=== PATIENT | male | born 1980 | race American Indian/Alaskan Native ===

== ENCOUNTER 2018-09-01 08:54 | Inpatient (IN) | payer BC ==
[2018-09-01] MEDS ORDERED: NACL 0.9% 1000 ML 1,000 ML ONE (09:19)
[2018-09-01 09:27] LABS: Basophils # (Auto) 0.1 K/mm3 (0.0-0.1); Basophils % (Auto) 1.3 % (0.0-1.8); Eosinophils % (Auto) 0.4 % (0.0-4.3); Hematocrit 46.3 % (35.5-45.6); Hemoglobin 15.3 gm/dl (11.8-15.2); Lymphocytes # (Auto) 1.5 K/mm3 (1.2-5.4); Lymphocytes % (Auto) 13.7 % (13.4-35.0); Mean Corpuscular HGB Conc 33 % (32-34); Mean Corpuscular Volume 83 fl (84-94); Monocytes # (Auto) 1.2 K/mm3 (0.0-0.8); Monocytes % (Auto) 11.3 % (0.0-7.3); Platelet Count 256 K/mm3 (140-440); Red Blood Count 5.57 M/mm3 (3.65-5.03); Red Cell Distribution Width 14.7 % (13.2-15.2)
--- NOTE | 2018-09-01 09:41 | Emergency Department Report ---
ED Shortness of Breath HPI - General Chief Complaint: Dyspnea/Respdistress Stated Complaint: SOB Time Seen by Provider: 09/01/18 09:31 Source: patient Mode of arrival: Ambulatory Limitations: No Limitations - History of Present Illness Initial Comments: Patient is a 37-year-old male that presents emergency room with complaints of elevated sugar and shortness of breath and dyspnea on exertion. Patient states is worse with exertion and better with rest. Patient states that his doctor diagnosed him yesterday with diabetes due to an elevated sugar between 500 and 600. Patient states he's been urinating a lot and also very thirsty. Patient denies chest pain. Patient denies abdominal pain. Patient denies fever or chills. Patient denies diaphoresis. MD Complaint: shortness of breath -: Sudden Severity: severe Consistency: constant Improves With: rest Worsens With: movement Known History Of: diabetes Context: elevated blood glucose Associated Symptoms: denies other symptoms (except for sob) - Related Data Home Medications Medication Instructions Recorded Confirmed Last Taken No Known Home Medications [No 09/01/18 09/01/18 Unknown Reported Home Medications] Allergies Allergy/AdvReac Type Severity Reaction Status Date / Time No Known Allergies Allergy Unverified 09/01/18 09:16 ED Review of Systems ROS: Stated complaint: SOB Other details as noted in HPI Constitutional: denies: chills, fever Eyes: denies: eye pain, eye discharge, vision change ENT: denies: ear pain, throat pain Respiratory: shortness of breath, SOB with exertion, SOB at rest. denies: cough, wheezing Cardiovascular: denies: chest pain, palpitations Endocrine: no symptoms reported Gastrointestinal: denies: abdominal pain, nausea, diarrhea Genitourinary: denies: urgency, dysuria Musculoskeletal: denies: back pain, joint swelling, arthralgia Skin: denies: rash, lesions Neurological: denies: headache, weakness, paresthesias Psychiatric: denies: anxiety, depression Hematological/Lymphatic: denies: easy bleeding, easy bruising ED Past Medical Hx - Past Medical History Previous Medical History?: Yes Hx Diabetes: Yes - Surgical History Past Surgical History?: No - Family History Family history: no significant - Social History Smoking Status: Never Smoker Substance Use Type: None - Medications Home Medications: Home Medications Medication Instructions Recorded Confirmed Last Taken Type No Known Home Medications [No 09/01/18 09/01/18 Unknown History Reported Home Medications] ED Physical Exam - General Limitations: No Limitations General appearance: alert, in no apparent distress, obese - Head Head exam: Present: atraumatic, normocephalic - Eye Eye exam: Present: normal appearance - ENT ENT exam: Present: mucous membranes moist - Neck Neck exam: Present: normal inspection - Respiratory Respiratory exam: Present: normal lung sounds bilaterally. Absent: respiratory distress - Cardiovascular Cardiovascular Exam: Present: regular rate, normal rhythm. Absent: systolic murmur, diastolic murmur, rubs, gallop - GI/Abdominal GI/Abdominal exam: Present: soft, normal bowel sounds - Rectal Rectal exam: Present: deferred - Extremities Exam Extremities exam: Present: normal inspection - Back Exam Back exam: Present: normal inspection - Neurological Exam Neurological exam: Present: alert, oriented X3 - Psychiatric Psychiatric exam: Present: normal affect, normal mood - Skin Skin exam: Present: warm, dry, intact, normal color. Absent: rash ED Course Vital Signs 09/01/18 09/01/18 09/01/18 09:30 09:45 10:00 Pulse Rate 95 H 91 H 90 Respiratory 24 19 20 Rate Blood Pressure 155/88 171/103 163/91 Blood Pressure [Right] O2 Sat by Pulse 99 98 100 Oximetry 09/01/18 09/01/18 09/01/18 10:15 10:30 10:46 Pulse Rate 91 H 89 93 H Respiratory 16 19 21 Rate Blood Pressure 184/108 162/104 184/108 Blood Pressure [Right] O2 Sat by Pulse 99 98 100 Oximetry 09/01/18 09/01/18 09/01/18 11:16 11:30 11:34 Pulse Rate 88 88 Respiratory 21 21 Rate Blood Pressure 162/104 164/83 Blood Pressure 164/83 [Right] O2 Sat by Pulse 100 99 97 Oximetry - Reevaluation(s) Reevaluation #1: Discussed All results with patient. She will be admitted to the hospital service for further outpatient treatment. Patient is in DKA. Patient voiced understanding of results. Patient agrees with plan of care and admission. 09/01/18 10:35 - Consultations Consultation #1: Hospitalist consulted for admission. Hospitalist to assume care of patient and admit patient. BRidge orders placed 09/01/18 10:37 ED Medical Decision Making - Lab Data Result diagrams: 09/01/18 09:13 09/01/18 14:34 - EKG Data -: EKG Interpreted by Me EKG shows normal: sinus rhythm, axis, intervals, QRS complexes, ST-T waves Rate: normal - Medical Decision Making Patient is a 37-year-old male presents to emergency room with complaints of hyperglycemia shortness of breath. Patient found to be in DKA. Patient's labs are positive for metabolic acidosis elevated anion gap, low bicarbonate and hyponatremia. Hyponatremia most likely strep and acuity S [place]. Patient's blood count essentially unremarkable. Patient's urine is pending. The patient's d-dimer is elevated but pretest probability is low. Patient is not hypoxic. Patient is not visibly short of breath. - Differential Diagnosis shortness of breath. Hyperglycemia. DKA. hhs. new dm Critical Care Time: Yes Critical care attestation.: If time is entered above; I have spent that time in minutes in the direct care of this critically ill patient, excluding procedure time. Critical Care Time: 45 minutes ED Disposition Clinical Impression: SOB (shortness of breath), Newly diagnosed diabetes, Metabolic acidosis DKA (diabetic ketoacidoses) Qualifiers: Diabetes mellitus type: type 2 Diabetes mellitus complication detail: without coma Qualified Code(s): E11.10 - Type 2 diabetes mellitus with ketoacidosis without coma Disposition: 09 OP ADMIT IP TO THIS HOSP Is pt being admited?: Yes Does the pt Need Aspirin: No Condition: Critical Time of Disposition: 10:35
[2018-09-01 09:56] LABS: BUN/Creatinine Ratio TNR; Blood Urea Nitrogen TNR mg/dL (9-20); Calcium TNR mg/dL (8.4-10.2); Hemolysis Index TNR
[2018-09-01 10:12] LABS: BUN/Creatinine Ratio 17; Blood Urea Nitrogen 17 mg/dL (9-20); Calcium 8.8 mg/dL (8.4-10.2); Hemolysis Index 41
[2018-09-01] MEDS ORDERED: D50W (25GM) Syringe IV PRN (10:33)
[2018-09-01] MEDS ORDERED: NACL 0.9% 1000 ML 1,000 ML IV ONE (10:33)
[2018-09-01 11:19] LABS: Creatine Kinase MB 4.6 ng/mL (0.0-4.0)
[2018-09-01 11:20] LABS: Alanine Aminotransferase 21 units/L (7-56); Albumin 4.3 g/dL (3.9-5)
[2018-09-01 11:22] LABS: BUN/Creatinine Ratio 18; Blood Urea Nitrogen 16 mg/dL (9-20); Calcium 8.8 mg/dL (8.4-10.2); Hemolysis Index 96
[2018-09-01 11:23] LABS: Bilirubin,Direct < 0.2 mg/dL (0-0.2)
[2018-09-01] MEDS: HumuLIN R 100 UNITS in NACL 0.9% 99 ML IV SCH (11:30)
[2018-09-01 11:36] LABS: Bilirubin,Urine NEG (Negative); Blood,Urine MOD (Negative); Color,Urine Straw (Yellow); Mucus,Urine FEW /HPF; Urobilinogen,Urine < 2.0 mg/dL (<2.0)
--- NOTE | 2018-09-01 12:29 | History and Physical Report ---
History of Present Illness Date of examination: 09/01/18 Date of admission: 09/01/18 10:53 History of present illness: Very pleasant morbidly obese 37-year-old -[place] male patient with no significant past medical history presented to the emergency room with worsening shortness of breath and elevated blood sugars and generalized weakness, patient reports that his shortness of breath is aggravated by activity and relieved by rest, Patient went to a physician yesterday and diagnosed him with elevated blood sugars with new onset diabetes sugars were between 500- 600, Patient also complains of polyuria and polydipsia Denies nausea or vomiting or abdominal pain denies fevers or cough, Denies chest pain or palpitations, Initial workup is consistent with diabetic ketoacidosis, With elevated blood sugars, high anion gap, Severe metabolic acidosis,pseudohyponatremia and multiply electrolyte abnormalities, patient is severely dehydrated Past History Past Medical History: No medical history Past Surgical History: No surgical history Social history: lives with family. denies: smoking, alcohol abuse, prescription drug abuse Family history: diabetes, hypertension Medications and Allergies Allergies Allergy/AdvReac Type Severity Reaction Status Date / Time No Known Allergies Allergy Unverified 09/01/18 09:16 Home Medications Medication Instructions Recorded Confirmed Last Taken Type No Known Home Medications [No 09/01/18 09/01/18 Unknown History Reported Home Medications] Active Meds: Active Medications Dextrose (D50w (25gm) Syringe) 0 ml IV PRN PRN PRN Reason: Hypoglycemia Insulin Human Regular 100 (units/ Sodium Chloride) 100 mls @ 1 mls/hr IV TITR DARNELL; Protocol Last Titration: 09/01/18 12:21 Dose: 4 units/hr, 4 mls/hr Documented by: Review of Systems Constitutional: fatigue, weakness, no weight loss, no weight gain, no fever, no chills Ears, nose, mouth and throat: no nasal congestion, no nasal discharge Cardiovascular: no chest pain, no orthopnea, no palpitations Respiratory: no cough, no shortness of breath Gastrointestinal: no abdominal pain, no nausea, no vomiting Genitourinary Male: urinary frequency Musculoskeletal: no neck stiffness, no myalgias, no arthritis Integumentary: no rash, no lesions Neurological: no paralysis, no syncope Psychiatric: no anxiety, no depression Endocrine: polydipsia, polyuria, no cold intolerance, no heat intolerance Hematologic/Lymphatic: no easy bruising, no easy bleeding Allergic/Immunologic: no urticaria, no allergic rhinitis Exam - Constitutional Vitals: Temp Pulse Resp BP Pulse Ox 88 21 164/83 97 09/01/18 11:34 09/01/18 11:34 09/01/18 11:34 09/01/18 11:34 General appearance: Present: mild distress, well-nourished, obese (morbidly obese) - EENT Eyes: Present: PERRL, EOM intact - Neck Neck: Present: supple, normal ROM - Respiratory Respiratory effort: normal Respiratory: bilateral: diminished, negative: rales, rhonchi, wheezing - Cardiovascular Rhythm: regular Heart Sounds: Present: S1 & S2 - Extremities Extremities: no ischemia, No edema - Abdominal General gastrointestinal: Present: soft, non-tender, non-distended, normal bowel sounds - Integumentary Integumentary: Present: clear, warm - Musculoskeletal Musculoskeletal: strength equal bilaterally, generalized weakness - Psychiatric Psychiatric: appropriate mood/affect, cooperative - Neurologic Neurologic: CNII-XII intact, moves all extremities Results - Labs CBC & Chem 7: 09/01/18 09:13 09/01/18 14:34 Labs: Abnormal lab results 09/01/18 09/01/18 09/01/18 Range/Units 09:13 09:13 09:40 RBC 5.57 H (3.65-5.03) M/mm3 Hgb 15.3 H (11.8-15.2) gm/dl Hct 46.3 H (35.5-45.6) % MCV 83 L (84-94) fl [place] % (Auto) 11.3 H (0.0-7.3) % [place] # 1.2 H (0.0-0.8) K/mm3 Seg Neutrophils % 73.3 H (40.0-70.0) % Seg Neutrophils # 7.8 H (1.8-7.7) K/mm3 D-Dimer 295.65 H (0-234) ng/mlDDU VBG pH 7.214 L (7.320-7.420) Sodium (137-145) mmol/L Potassium (3.6-5.0) mmol/L Chloride (98-107) mmol/L Carbon Dioxide (22-30) mmol/L Glucose (75-100) mg/dL POC Glucose (70-105) Phosphorus (2.5-4.5) mg/dL Total Creatine Kinase (55-170) units/L CK-MB (CK-2) (0.0-4.0) ng/mL 09/01/18 09/01/18 09/01/18 Range/Units 09:40 09:40 10:44 RBC (3.65-5.03) M/mm3 Hgb (11.8-15.2) gm/dl Hct (35.5-45.6) % MCV (84-94) fl [place] % (Auto) (0.0-7.3) % [place] # (0.0-0.8) K/mm3 Seg Neutrophils % (40.0-70.0) % Seg Neutrophils # (1.8-7.7) K/mm3 D-Dimer (0-234) ng/mlDDU VBG pH (7.320-7.420) Sodium 124 L (137-145) mmol/L Potassium (3.6-5.0) mmol/L Chloride 86.4 L (98-107) mmol/L Carbon Dioxide 7 L* (22-30) mmol/L Glucose 367 H (75-100) mg/dL POC Glucose (70-105) Phosphorus 2.20 L (2.5-4.5) mg/dL Total Creatine Kinase 456 H (55-170) units/L CK-MB (CK-2) 4.6 H (0.0-4.0) ng/mL 09/01/18 09/01/18 09/01/18 Range/Units 10:44 11:28 12:21 RBC (3.65-5.03) M/mm3 Hgb (11.8-15.2) gm/dl Hct (35.5-45.6) % MCV (84-94) fl [place] % (Auto) (0.0-7.3) % [place] # (0.0-0.8) K/mm3 Seg Neutrophils % (40.0-70.0) % Seg Neutrophils # (1.8-7.7) K/mm3 D-Dimer (0-234) ng/mlDDU VBG pH (7.320-7.420) Sodium 124 L (137-145) mmol/L Potassium 5.3 H (3.6-5.0) mmol/L Chloride 87.8 L (98-107) mmol/L Carbon Dioxide 8 L* (22-30) mmol/L Glucose 341 H (75-100) mg/dL POC Glucose 303 H 243 H (70-105) Phosphorus (2.5-4.5) mg/dL Total Creatine Kinase (55-170) units/L CK-MB (CK-2) (0.0-4.0) ng/mL Assessment and Plan -- DKA; initiate DKA pathway; admit to ICU rigorous IV hydration, insulin drip, closely monitor electrolytes Nothing by mouth status, check hemoglobin A1c and lipid panel Diabetic education, nutrition education, supportive care Critical care consult --Severe metabolic acidosis; rigorous IV hydration Replacement therapy with bicarbonate as needed --Pseudo hyponatremia: Secondary to high glucose, as the glucose levels improved Sodium levels increase, closely monitor --Hyperkalemia; IV hydration, Kayexalate if needed Closely monitor electrolytes --Hypophosphatemia; replace per protocol --Hypertension: Uncontrolled, hydralazine as needed Closely monitor blood pressures, when necessary medications --Morbid obesity : BMI 54.4 patient needs diet modification, exercise as tolerated And weight reduction --DVT prophylaxis; Lovenox Closely monitor the patient and adjust management as needed Plan of care is reviewed with the patient and his nurse Critical care consult Critical care time 45 minutes The high probability of a clinically significant, sudden or life threatening d eterioration of the [endocrine, metabolic] system(s) required my full and direct attention, intervention and personal management. The aggregate critical care time was [45] minutes. This time is in addition to time spent performing reported procedures but includes the following: [x] Data Review and interpretation [x] Patient assessment and monitoring of vital signs [x] Documentation [x] Medication orders and management
[2018-09-01] MEDS ORDERED: APRESOLINE IV PRN (12:48)
[2018-09-01] MEDS: D5/0.45NS 1,000 ML IV SCH ×2 (13:07→21:10)
[2018-09-01] MEDS ORDERED: NACL 0.9% 1000 ML 1,000 ML IV SCH (14:00)
[2018-09-01] MEDS: PEPCID IV SCH ×2 (14:25→21:11)
[2018-09-01] MEDS: APRESOLINE PO SCH ×2 (14:25→21:12)
[2018-09-01 14:49] LABS: BUN/Creatinine Ratio 16; Blood Urea Nitrogen 16 mg/dL (9-20); Hemolysis Index 71
[2018-09-01 14:52] LABS: Chol/HDL Ratio 8.14 %
[2018-09-01 15:22] LABS: BUN/Creatinine Ratio 17; Blood Urea Nitrogen 15 mg/dL (9-20); Calcium 8.7 mg/dL (8.4-10.2); Hemolysis Index 284
[2018-09-01] MEDS ORDERED: NACL 0.9% 1000 ML 1,000 ML with SODIUM BICARBONATE 50 MEQ IV SCH (17:00)
[2018-09-01 17:16] LABS: BUN/Creatinine Ratio 18; Blood Urea Nitrogen 14 mg/dL (9-20); Calcium 8.6 mg/dL (8.4-10.2); Hemolysis Index 41
--- NOTE | 2018-09-01 17:45 | Consultation ---
History of Present Illness - Reason for Consult Consult date: 09/01/18 DKA Requesting physician: KRISH VERDUGO - History of Present Illness 37 y/o obese male admitted with nausea, vomiting, abdominal pain and polydipsia found to be in DKA. New diagnosis of diabetes. Past History Past Medical History: No medical history Past Surgical History: No surgical history Social history: lives with family. denies: smoking, alcohol abuse, prescription drug abuse Family history: diabetes, hypertension Medications and Allergies Allergies Allergy/AdvReac Type Severity Reaction Status Date / Time No Known Allergies Allergy Unverified 09/01/18 09:16 Home Medications Medication Instructions Recorded Confirmed Last Taken Type No Known Home Medications [No 09/01/18 09/01/18 Unknown History Reported Home Medications] Active Meds: Active Medications Dextrose (D50w (25gm) Syringe) 0 ml IV PRN PRN PRN Reason: Hypoglycemia Enoxaparin Sodium (Lovenox) 40 mg SUB-Q QDAY@2200 DARNELL Famotidine (Pepcid) 20 mg IV BID DARNELL Last Admin: 09/01/18 14:25 Dose: 20 mg Documented by: Hydralazine HCl (Apresoline) 25 mg PO Q8HR DARNELL Last Admin: 09/01/18 14:25 Dose: 25 mg Documented by: Hydralazine HCl (Apresoline) 10 mg IV Q4HR PRN PRN Reason: Hypertension Insulin Human Regular 100 (units/ Sodium Chloride) 100 mls @ 1 mls/hr IV TITR S CH; Protocol Last Titration: 09/01/18 17:15 Dose: 5 units/hr, 5 mls/hr Documented by: Dextrose/Sodium Chloride (D5/0.45ns) 1,000 mls @ 125 mls/hr IV DIRECT DARNELL Last Admin: 09/01/18 13:07 Dose: 125 mls/hr Documented by: Sodium Bicarbonate 50 meq/ (Sodium Chloride) 1,050 mls @ 125 mls/hr IV DIRECT DARNELL Review of Systems All systems: negative Exam - Constitutional Vitals: Temp Pulse Resp BP Pulse Ox 90 16 155/82 99 09/01/18 17:00 09/01/18 17:00 09/01/18 17:00 09/01/18 17:00 General appearance: Present: no acute distress, well-nourished, obese - EENT Eyes: Present: PERRL, EOM intact ENT: hearing intact, clear oral mucosa, dentition normal - Neck Neck: Present: supple, normal ROM - Respiratory Respiratory effort: normal Respiratory: bilateral: CTA - Cardiovascular Rhythm: regular Heart Sounds: Present: S1 & S2 - Extremities Extremities: no ischemia, pulses intact, pulses symmetrical - Abdominal General gastrointestinal: Present: soft, normal bowel sounds Male genitourinary: Present: deferred - Rectal Rectal Exam: deferred - Integumentary Integumentary: Present: clear, warm, dry - Musculoskeletal Musculoskeletal: strength equal bilaterally - Psychiatric Psychiatric: appropriate mood/affect Results - Labs CBC & Chem 7: 09/02/18 04:22 09/02/18 10:22 Labs: Abnormal lab results 09/01/18 09/01/18 09/01/18 Range/Units 09:13 09:13 09:40 RBC 5.57 H (3.65-5.03) M/mm3 Hgb 15.3 H (11.8-15.2) gm/dl Hct 46.3 H (35.5-45.6) % MCV 83 L (84-94) fl [place] % (Auto) 11.3 H (0.0-7.3) % [place] # 1.2 H (0.0-0.8) K/mm3 Seg Neutrophils % 73.3 H (40.0-70.0) % Seg Neutrophils # 7.8 H (1.8-7.7) K/mm3 D-Dimer 295.65 H (0-234) ng/mlDDU VBG pH 7.214 L (7.320-7.420) Sodium (137-145) mmol/L Potassium (3.6-5.0) mmol/L Chloride (98-107) mmol/L Carbon Dioxide (22-30) mmol/L Glucose (75-100) mg/dL POC Glucose (70-105) Hemoglobin A1c (4-6) % Phosphorus (2.5-4.5) mg/dL Magnesium (1.7-2.3) mg/dL Total Creatine Kinase (55-170) units/L CK-MB (CK-2) (0.0-4.0) ng/mL Triglycerides (2-149) mg/dL Cholesterol (50-199) mg/dL LDL Cholesterol Direct (50-130) mg/dL HDL Cholesterol (40-59) mg/dL 09/01/18 09/01/18 09/01/18 Range/Units 09:40 09:40 10:44 RBC (3.65-5.03) M/mm3 Hgb (11.8-15.2) gm/dl Hct (35.5-45.6) % MCV (84-94) fl [place] % (Auto) (0.0-7.3) % [place] # (0.0-0.8) K/mm3 Seg Neutrophils % (40.0-70.0) % Seg Neutrophils # (1.8-7.7) K/mm3 D-Dimer (0-234) ng/mlDDU VBG pH (7.320-7.420) Sodium 124 L (137-145) mmol/L Potassium (3.6-5.0) mmol/L Chloride 86.4 L (98-107) mmol/L Carbon Dioxide 7 L* (22-30) mmol/L Glucose 367 H (75-100) mg/dL POC Glucose (70-105) Hemoglobin A1c (4-6) % Phosphorus 2.20 L (2.5-4.5) mg/dL Magnesium (1.7-2.3) mg/dL Total Creatine Kinase 456 H (55-170) units/L CK-MB (CK-2) 4.6 H (0.0-4.0) ng/mL Triglycerides (2-149) mg/dL Cholesterol (50-199) mg/dL LDL Cholesterol Direct (50-130) mg/dL HDL Cholesterol (40-59) mg/dL 09/01/18 09/01/18 09/01/18 Range/Units 10:44 11:28 12:21 RBC (3.65-5.03) M/mm3 Hgb (11.8-15.2) gm/dl Hct (35.5-45.6) % MCV (84-94) fl [place] % (Auto) (0.0-7.3) % [place] # (0.0-0.8) K/mm3 Seg Neutrophils % (40.0-70.0) % Seg Neutrophils # (1.8-7.7) K/mm3 D-Dimer (0-234) ng/mlDDU VBG pH (7.320-7.420) Sodium 124 L (137-145) mmol/L Potassium 5.3 H (3.6-5.0) mmol/L Chloride 87.8 L (98-107) mmol/L Carbon Dioxide 8 L* (22-30) mmol/L Glucose 341 H (75-100) mg/dL POC Glucose 303 H 243 H (70-105) Hemoglobin A1c (4-6) % Phosphorus (2.5-4.5) mg/dL Magnesium (1.7-2.3) mg/dL Total Creatine Kinase (55-170) units/L CK-MB (CK-2) (0.0-4.0) ng/mL Triglycerides (2-149) mg/dL Cholesterol (50-199) mg/dL LDL Cholesterol Direct (50-130) mg/dL HDL Cholesterol (40-59) mg/dL 09/01/18 09/01/18 09/01/18 Range/Units 13:08 13:08 13:08 RBC (3.65-5.03) M/mm3 Hgb (11.8-15.2) gm/dl Hct (35.5-45.6) % MCV (84-94) fl [place] % (Auto) (0.0-7.3) % [place] # (0.0-0.8) K/mm3 Seg Neutrophils % (40.0-70.0) % Seg Neutrophils # (1.8-7.7) K/mm3 D-Dimer (0-234) ng/mlDDU VBG pH (7.320-7.420) Sodium 126 L (137-145) mmol/L Potassium (3.6-5.0) mmol/L Chloride 89.2 L (98-107) mmol/L Carbon Dioxide 8 L* (22-30) mmol/L Glucose 263 H (75-100) mg/dL POC Glucose (70-105) Hemoglobin A1c 12.9 H (4-6) % Phosphorus 1.50 L D (2.5-4.5) mg/dL Magnesium 2.40 H (1.7-2.3) mg/dL Total Creatine Kinase (55-170) units/L CK-MB (CK-2) (0.0-4.0) ng/mL Triglycerides (2-149) mg/dL Cholesterol (50-199) mg/dL LDL Cholesterol Direct (50-130) mg/dL HDL Cholesterol (40-59) mg/dL 09/01/18 09/01/18 09/01/18 Range/Units 13:08 13:16 14:20 RBC (3.65-5.03) M/mm3 Hgb (11.8-15.2) gm/dl Hct (35.5-45.6) % MCV (84-94) fl [place] % (Auto) (0.0-7.3) % [place] # (0.0-0.8) K/mm3 Seg Neutrophils % (40.0-70.0) % Seg Neutrophils # (1.8-7.7) K/mm3 D-Dimer (0-234) ng/mlDDU VBG pH (7.320-7.420) Sodium (137-145) mmol/L Potassium (3.6-5.0) mmol/L Chloride (98-107) mmol/L Carbon Dioxide (22-30) mmol/L Glucose (75-100) mg/dL POC Glucose 246 H 239 H (70-105) Hemoglobin A1c (4-6) % Phosphorus (2.5-4.5) mg/dL Magnesium (1.7-2.3) mg/dL Total Creatine Kinase (55-170) units/L CK-MB (CK-2) (0.0-4.0) ng/mL Triglycerides 151 H (2-149) mg/dL Cholesterol 228 H (50-199) mg/dL LDL Cholesterol Direct 182 H (50-130) mg/dL HDL Cholesterol 28 L (40-59) mg/dL 09/01/18 09/01/18 09/01/18 Range/Units 14:34 15:10 16:10 RBC (3.65-5.03) M/mm3 Hgb (11.8-15.2) gm/dl Hct (35.5-45.6) % MCV (84-94) fl [place] % (Auto) (0.0-7.3) % [place] # (0.0-0.8) K/mm3 Seg Neutrophils % (40.0-70.0) % Seg Neutrophils # (1.8-7.7) K/mm3 D-Dimer (0-234) ng/mlDDU VBG pH (7.320-7.420) Sodium 125 L (137-145) mmol/L Potassium 5.3 H D (3.6-5.0) mmol/L Chloride 94.9 L (98-107) mmol/L Carbon Dioxide 8 L* (22-30) mmol/L Glucose 228 H (75-100) mg/dL POC Glucose 205 H 221 H (70-105) Hemoglobin A1c (4-6) % Phosphorus (2.5-4.5) mg/dL Magnesium (1.7-2.3) mg/dL Total Creatine Kinase (55-170) units/L CK-MB (CK-2) (0.0-4.0) ng/mL Triglycerides (2-149) mg/dL Cholesterol (50-199) mg/dL LDL Cholesterol Direct (50-130) mg/dL HDL Cholesterol (40-59) mg/dL 09/01/18 09/01/18 09/01/18 Range/Units 16:40 16:40 17:18 RBC (3.65-5.03) M/mm3 Hgb (11.8-15.2) gm/dl Hct (35.5-45.6) % MCV (84-94) fl [place] % (Auto) (0.0-7.3) % [place] # (0.0-0.8) K/mm3 Seg Neutrophils % (40.0-70.0) % Seg Neutrophils # (1.8-7.7) K/mm3 D-Dimer (0-234) ng/mlDDU VBG pH (7.320-7.420) Sodium 125 L (137-145) mmol/L Potassium (3.6-5.0) mmol/L Chloride 93.9 L (98-107) mmol/L Carbon Dioxide 11 L (22-30) mmol/L Glucose 243 H (75-100) mg/dL POC Glucose 214 H (70-105) Hemoglobin A1c (4-6) % Phosphorus 1.40 L (2.5-4.5) mg/dL Magnesium (1.7-2.3) mg/dL Total Creatine Kinase (55-170) units/L CK-MB (CK-2) (0.0-4.0) ng/mL Triglycerides (2-149) mg/dL Cholesterol (50-199) mg/dL LDL Cholesterol Direct (50-130) mg/dL HDL Cholesterol (40-59) mg/dL Assessment and Plan 37 y/o male with DKA 1. Insulin drip 2. NPO 3. Once sugars are less than 250 start D5W 4. Q6hour BMP's 5. Nausea and pain control [id number]
[2018-09-01] MEDS ORDERED: SODIUM PHOSPHATE 45 MMOL in NACL 0.9% 500 ML 500 ML IV ONE (19:30)
[2018-09-01 21:06] LABS: BUN/Creatinine Ratio 19; Blood Urea Nitrogen 13 mg/dL (9-20); Calcium 8.7 mg/dL (8.4-10.2); Hemolysis Index 131
[2018-09-01] MEDS: LOVENOX SUB-Q SCH (21:12)
[2018-09-02] MEDS: HumuLIN R 100 UNITS in NACL 0.9% 99 ML IV SCH (03:16)
[2018-09-02 05:07] LABS: Basophils # (Auto) 0.1 K/mm3 (0.0-0.1); Eosinophils # (Auto) 0.1 K/mm3 (0.0-0.4); Hematocrit 39.6 % (35.5-45.6); Hemoglobin 13.3 gm/dl (11.8-15.2); Lymphocytes # (Auto) 1.5 K/mm3 (1.2-5.4); Lymphocytes % (Auto) 21.5 % (13.4-35.0); Mean Corpuscular HGB Conc 34 % (32-34); Mean Corpuscular Volume 81 fl (84-94); Monocytes % (Auto) 13.8 % (0.0-7.3); Platelet Count 198 K/mm3 (140-440); Red Cell Distribution Width 14.3 % (13.2-15.2)
[2018-09-02 05:24] LABS: BUN/Creatinine Ratio 16; Blood Urea Nitrogen 11 mg/dL (9-20); Calcium 8.5 mg/dL (8.4-10.2); Hemolysis Index 14
[2018-09-02] MEDS: APRESOLINE PO SCH ×3 (06:43→21:30)
[2018-09-02] MEDS ORDERED: D5W/0.45% NACL/KCL 20 MEQ 20 MEQ/1,000 ML BAG IV SCH (07:00)
[2018-09-02] MEDS ORDERED: KPHOS 30 MMOL in NACL 0.9% 500 ML 500 ML IV ONE (07:30)
--- NOTE | 2018-09-02 08:07 | Progress Note ---
Assessment and Plan Assessment and plan: -- DKA; on insulin drip, blood sugars reasonable level Anion gap closed, remains acidotic, A1c 12.9 rigorous IV hydration, DC insulin drip, Accu-Cheks ACHS 7030 insulin start to increase as needed diabetic education, nutrition consult --Severe metabolic acidosis; rigorous IV hydration Replacement therapy with bicarbonate as needed --Pseudo hyponatremia: Secondary to high glucose, as the glucose levels improved Sodium levels increase, closely monitor --Hypokalemia; replenishment per protocol --Hypophosphatemia; replenish per protocol --Hypertension well controlled, continue hydralazine as needed --Morbid obesity : BMI 54.4 diet modification, exercise as tolerated And weight reduction --DVT prophylaxis; Lovenox Transfer out of ICU to medical floor Plan of care is reviewed with the patient and his nurse Critical care time 35 minutes The high probability of a clinically significant, sudden or life threatening deterioration of the [endocrine, metabolic] system(s) required my full and direct attention, intervention and personal management. The aggregate critical care time was [35] minutes. This time is in addition to time spent performing reported procedures but includes the following: [x] Data Review and interpretation [x] Patient assessment and monitoring of vital signs [x] Documentation [x] Medication orders and management History Interval history: Patient seen and examined medical records reviewed Admitted with DKA, blood sugar is reasonable Anion gap closed, still remains acidotic Denies nausea or vomiting or abdominal pain Alert awake oriented, vital signs noted Hospitalist Physical - Constitutional Vitals: Temp Pulse Resp BP Pulse Ox 98.6 F 81 18 129/67 99 09/02/18 04:00 09/02/18 07:00 09/02/18 07:00 09/02/18 07:00 09/02/18 07:00 General appearance: Present: no acute distress, well-nourished, obese (morbidly obese) - EENT Eyes: Present: PERRL, EOM intact - Neck Neck: Present: supple, normal ROM - Respiratory Respiratory effort: normal Respiratory: bilateral: diminished, negative: rales, rhonchi, wheezing - Cardiovascular Rhythm: regular Heart Sounds: Present: S1 & S2 - Extremities Extremities: no ischemia, No edema - Abdominal General gastrointestinal: soft, non-tender, non-distended, normal bowel sounds - Integumentary Integumentary: Present: clear, warm - Psychiatric Psychiatric: appropriate mood/affect, cooperative - Neurologic Neurologic: CNII-XII intact, moves all extremities Results - Labs CBC & Chem 7: 09/02/18 04:22 09/02/18 14:25 Labs: Laboratory Last Values WBC 7.1 K/mm3 (4.5-11.0) 09/02/18 04:22 RBC 4.90 M/mm3 (3.65-5.03) 09/02/18 04:22 Hgb 13.3 gm/dl (11.8-15.2) 09/02/18 04:22 Hct 39.6 % (35.5-45.6) D 09/02/18 04:22 MCV 81 fl (84-94) L 09/02/18 04:22 MCH 27 pg (28-32) L 09/02/18 04:22 MCHC 34 % (32-34) 09/02/18 04:22 RDW 14.3 % (13.2-15.2) 09/02/18 04:22 Plt Count 198 K/mm3 (140-440) 09/02/18 04:22 Lymph % (Auto) 21.5 % (13.4-35.0) 09/02/18 04:22 [place] % (Auto) 13.8 % (0.0-7.3) H 09/02/18 04:22 Eos % (Auto) 1.0 % (0.0-4.3) 09/02/18 04:22 Baso % (Auto) 1.0 % (0.0-1.8) 09/02/18 04:22 Lymph # 1.5 K/mm3 (1.2-5.4) 09/02/18 04:22 [place] # 1.0 K/mm3 (0.0-0.8) H 09/02/18 04:22 Eos # 0.1 K/mm3 (0.0-0.4) 09/02/18 04:22 Baso # 0.1 K/mm3 (0.0-0.1) 09/02/18 04:22 Seg Neutrophils % 62.7 % (40.0-70.0) 09/02/18 04:22 Seg Neutrophils # 4.5 K/mm3 (1.8-7.7) 09/02/18 04:22 D-Dimer 295.65 ng/mlDDU (0-234) H 09/01/18 09:40 VBG pH 7.214 (7.320-7.420) L 09/01/18 09:13 Sodium 129 mmol/L (137-145) L 09/02/18 04:22 Potassium 3.2 mmol/L (3.6-5.0) L 09/02/18 04:22 Chloride 96.4 mmol/L (98-107) L 09/02/18 04:22 Carbon Dioxide 17 mmol/L (22-30) L 09/02/18 04:22 Anion Gap 19 mmol/L 09/02/18 04:22 BUN 11 mg/dL (9-20) 09/02/18 04:22 Creatinine 0.7 mg/dL (0.8-1.5) L 09/02/18 04:22 Estimated GFR > 60 ml/min 09/02/18 04:22 BUN/Creatinine Ratio 16 % 09/02/18 04:22 Glucose 170 mg/dL (75-100) H 09/02/18 04:22 POC Glucose 159 (70-105) H 09/02/18 04:56 Hemoglobin A1c 12.9 % (4-6) H 09/01/18 13:08 Calcium 8.5 mg/dL (8.4-10.2) 09/02/18 04:22 Phosphorus 2.20 mg/dL (2.5-4.5) L D 09/02/18 04:22 Magnesium 2.10 mg/dL (1.7-2.3) 09/02/18 04:22 Total Bilirubin 0.40 mg/dL (0.1-1.2) 09/01/18 09:40 Direct Bilirubin < 0.2 mg/dL (0-0.2) 09/01/18 09:40 AST 17 units/L (5-40) 09/01/18 09:40 ALT 21 units/L (7-56) 09/01/18 09:40 Alkaline Phosphatase 96 units/L (35-129) 09/01/18 09:40 Total Creatine Kinase 456 units/L (55-170) H 09/01/18 09:40 CK-MB (CK-2) 4.6 ng/mL (0.0-4.0) H 09/01/18 09:40 CK-MB (CK-2) Rel Index 1.0 (0-4) 09/01/18 09:40 Troponin T < 0.010 ng/mL (0.00-0.029) 09/01/18 09:40 NT-Pro-B Natriuret Pep 42.18 pg/mL (0-450) 09/01/18 09:40 Total Protein 8.0 g/dL (6.3-8.2) 09/01/18 09:40 Albumin 4.3 g/dL (3.9-5) 09/01/18 09:40 Albumin/Globulin Ratio 1.2 % 09/01/18 09:40 Triglycerides 151 mg/dL (2-149) H 09/01/18 13:08 Cholesterol 228 mg/dL (50-199) H 09/01/18 13:08 LDL Cholesterol Direct 182 mg/dL (50-130) H 09/01/18 13:08 HDL Cholesterol 28 mg/dL (40-59) L 09/01/18 13:08 Cholesterol/HDL Ratio 8.14 % 09/01/18 13:08 Urine Color Straw (Yellow) 09/01/18 11:25 Urine Turbidity Clear (Clear) 09/01/18 11:25 Urine pH 6.0 (5.0-7.0) 09/01/18 11:25 Ur Specific [place] 1.021 (1.003-1.030) 09/01/18 11:25 Urine Protein 30 mg/dl mg/dL (Negative) 09/01/18 11:25 Urine Glucose (UA) >=500 mg/dL (Negative) 09/01/18 11:25 Urine Ketones 80 mg/dL (Negative) 09/01/18 11:25 Urine Blood Mod (Negative) 09/01/18 11:25 Urine Nitrite Neg (Negative) 09/01/18 11:25 Urine Bilirubin Neg (Negative) 09/01/18 11:25 Urine Urobilinogen < 2.0 mg/dL (<2.0) 09/01/18 11:25 Ur Leukocyte Esterase Neg (Negative) 09/01/18 11:25 Urine WBC (Auto) 1.0 /HPF (0.0-6.0) 09/01/18 11:25 Urine RBC (Auto) 1.0 /HPF (0.0-6.0) 09/01/18 11:25 U Epithel Cells (Auto) < 1.0 /HPF (0-13.0) 09/01/18 11:25 Urine Mucus Few /HPF 09/01/18 11:25
[2018-09-02] MEDS ORDERED: NACL 0.9% 1000 ML 1,000 ML IV SCH (09:00)
[2018-09-02] MEDS ORDERED: K-DUR PO ONE (09:00)
[2018-09-02] MEDS: PEPCID PO SCH ×2 (09:13→21:30)
[2018-09-02] MEDS: HumaLOG SUB-Q SCH ×4 (09:17→21:38)
[2018-09-02] MEDS ORDERED: PROTONIX IV SCH (10:00)
[2018-09-02 10:58] LABS: BUN/Creatinine Ratio 14; Blood Urea Nitrogen 11 mg/dL (9-20); Calcium 8.7 mg/dL (8.4-10.2); Hemolysis Index 16
--- NOTE | 2018-09-02 11:03 | Progress Note ---
Assessment and Plan 37 y/o male with DKA 1. Long acting insulin 2. Consistent Carbohydrate Diet 3. Stop IVF's 4. Transition to floor 5. Will sign off once out of unit. Subjective Date of service: 09/02/18 Interval history: No acute events. Gap closed and now on long acting insulin. Feels better. Tolerated breakfast with no issues. Objective - Constitutional Vitals: Vital Signs - 12hr 09/01/18 09/01/18 09/01/18 23:23 23:26 23:30 Temperature Pulse Rate 88 86 89 Respiratory 15 16 Rate Blood Pressure 144/74 144/74 O2 Sat by Pulse 98 98 Oximetry 09/02/18 09/02/18 09/02/18 00:00 00:30 01:00 Temperature 98.4 F Pulse Rate 86 82 83 Respiratory 18 17 19 Rate Blood Pressure 155/88 155/88 140/73 O2 Sat by Pulse 97 100 99 Oximetry 09/02/18 09/02/18 09/02/18 01:30 02:00 02:30 Temperature Pulse Rate 85 84 91 H Respiratory 15 19 18 Rate Blood Pressure 140/73 131/71 134/80 O2 Sat by Pulse 100 99 99 Oximetry 09/02/18 09/02/18 09/02/18 03:00 03:30 04:00 Temperature 98.6 F Pulse Rate 89 84 82 Respiratory 17 18 18 Rate Blood Pressure 128/80 135/71 129/72 O2 Sat by Pulse 97 100 100 Oximetry 09/02/18 09/02/18 09/02/18 04:22 04:30 05:00 Temperature Pulse Rate 84 80 84 Respiratory 16 17 Rate Blood Pressure 129/72 129/72 O2 Sat by Pulse 99 98 Oximetry 09/02/18 09/02/18 09/02/18 05:30 06:00 06:30 Temperature Pulse Rate 83 83 81 Respiratory 18 17 14 Rate Blood Pressure 129/72 129/72 129/72 O2 Sat by Pulse 99 98 99 Oximetry 09/02/18 09/02/18 09/02/18 06:43 07:00 07:30 Temperature Pulse Rate 85 81 87 Respiratory 18 13 Rate Blood Pressure 129/67 129/67 129/67 O2 Sat by Pulse 99 99 Oximetry 09/02/18 09/02/18 09/02/18 08:00 08:08 08:30 Temperature Pulse Rate 89 85 Respiratory 20 16 Rate Blood Pressure 129/67 125/67 O2 Sat by Pulse 99 100 Oximetry 09/02/18 09/02/18 09/02/18 09:00 09:30 10:00 Temperature Pulse Rate 92 H 87 94 H Respiratory 10 L 22 17 Rate Blood Pressure 121/64 121/64 134/68 O2 Sat by Pulse 98 97 99 Oximetry 09/02/18 09/02/18 10:30 11:00 Temperature 98.5 F Pulse Rate 92 H Respiratory 18 Rate Blood Pressure 143/85 O2 Sat by Pulse 98 Oximetry General appearance: Present: no acute distress, well-nourished, obese - EENT ENT: hearing intact, clear oral mucosa, dentition normal - Neck Neck: supple, normal ROM, other (large in circumference) - Respiratory Respiratory effort: normal Respiratory: bilateral: CTA - Cardiovascular Rhythm: regular Heart Sounds: Present: S1 & S2 Extremities: no ischemia, pulses intact, pulses symmetrical - Gastrointestinal General gastrointestinal: Present: soft, non-tender, normal bowel sounds - Integumentary Integumentary: clear, warm, dry - Musculoskeletal Musculoskeletal: strength equal bilaterally - Neurologic Neurologic: CNII-XII intact - Psychiatric Psychiatric: appropriate mood/affect - Labs CBC & Chem 7: 09/02/18 04:22 09/02/18 10:22 Labs: Abnormal lab results 09/01/18 09/01/18 09/01/18 Range/Units 09:40 10:44 10:44 MCV (84-94) fl MCH (28-32) pg [place] % (Auto) (0.0-7.3) % Bell # (0.0-0.8) K/mm3 Sodium 124 L (137-145) mmol/L Potassium 5.3 H (3.6-5.0) mmol/L Chloride 87.8 L (98-107) mmol/L Carbon Dioxide 8 L* (22-30) mmol/L Creatinine (0.8-1.5) mg/dL Glucose 341 H (75-100) mg/dL POC Glucose (70-105) Hemoglobin A1c (4-6) % Phosphorus 2.20 L (2.5-4.5) mg/dL Magnesium (1.7-2.3) mg/dL Total Creatine Kinase 456 H (55-170) units/L CK-MB (CK-2) 4.6 H (0.0-4.0) ng/mL Triglycerides (2-149) mg/dL Cholesterol (50-199) mg/dL LDL Cholesterol Direct (50-130) mg/dL HDL Cholesterol (40-59) mg/dL 09/01/18 09/01/18 09/01/18 Range/Units 11:28 12:21 13:08 MCV (84-94) fl MCH (28-32) pg Bell % (Auto) (0.0-7.3) % Bell # (0.0-0.8) K/mm3 Sodium 126 L (137-145) mmol/L Potassium (3.6-5.0) mmol/L Chloride 89.2 L (98-107) mmol/L Carbon Dioxide 8 L* (22-30) mmol/L Creatinine (0.8-1.5) mg/dL Glucose 263 H (75-100) mg/dL POC Glucose 303 H 243 H (70-105) Hemoglobin A1c (4-6) % Phosphorus (2.5-4.5) mg/dL Magnesium (1.7-2.3) mg/dL Total Creatine Kinase (55-170) units/L CK-MB (CK-2) (0.0-4.0) ng/mL Triglycerides (2-149) mg/dL Cholesterol (50-199) mg/dL LDL Cholesterol Direct (50-130) mg/dL HDL Cholesterol (40-59) mg/dL 09/01/18 09/01/18 09/01/18 Range/Units 13:08 13:08 13:08 MCV (84-94) fl MCH (28-32) pg [place] % (Auto) (0.0-7.3) % Bell # (0.0-0.8) K/mm3 Sodium (137-145) mmol/L Potassium (3.6-5.0) mmol/L Chloride (98-107) mmol/L Carbon Dioxide (22-30) mmol/L Creatinine (0.8-1.5) mg/dL Glucose (75-100) mg/dL POC Glucose (70-105) Hemoglobin A1c 12.9 H (4-6) % Phosphorus 1.50 L D (2.5-4.5) mg/dL Magnesium 2.40 H (1.7-2.3) mg/dL Total Creatine Kinase (55-170) units/L CK-MB (CK-2) (0.0-4.0) ng/mL Triglycerides 151 H (2-149) mg/dL Cholesterol 228 H (50-199) mg/dL LDL Cholesterol Direct 182 H (50-130) mg/dL HDL Cholesterol 28 L (40-59) mg/dL 09/01/18 09/01/18 09/01/18 Range/Units 13:16 14:20 14:34 MCV (84-94) fl MCH (28-32) pg [place] % (Auto) (0.0-7.3) % Bell # (0.0-0.8) K/mm3 Sodium 125 L (137-145) mmol/L Potassium 5.3 H D (3.6-5.0) mmol/L Chloride 94.9 L (98-107) mmol/L Carbon Dioxide 8 L* (22-30) mmol/L Creatinine (0.8-1.5) mg/dL Glucose 228 H (75-100) mg/dL POC Glucose 246 H 239 H (70-105) Hemoglobin A1c (4-6) % Phosphorus (2.5-4.5) mg/dL Magnesium (1.7-2.3) mg/dL Total Creatine Kinase (55-170) units/L CK-MB (CK-2) (0.0-4.0) ng/mL Triglycerides (2-149) mg/dL Cholesterol (50-199) mg/dL LDL Cholesterol Direct (50-130) mg/dL HDL Cholesterol (40-59) mg/dL 09/01/18 09/01/18 09/01/18 Range/Units 15:10 16:10 16:40 MCV (84-94) fl MCH (28-32) pg [place] % (Auto) (0.0-7.3) % Bell # (0.0-0.8) K/mm3 Sodium 125 L (137-145) mmol/L Potassium (3.6-5.0) mmol/L Chloride 93.9 L (98-107) mmol/L Carbon Dioxide 11 L (22-30) mmol/L Creatinine (0.8-1.5) mg/dL Glucose 243 H (75-100) mg/dL POC Glucose 205 H 221 H (70-105) Hemoglobin A1c (4-6) % Phosphorus (2.5-4.5) mg/dL Magnesium (1.7-2.3) mg/dL Total Creatine Kinase (55-170) units/L CK-MB (CK-2) (0.0-4.0) ng/mL Triglycerides (2-149) mg/dL Cholesterol (50-199) mg/dL LDL Cholesterol Direct (50-130) mg/dL HDL Cholesterol (40-59) mg/dL 09/01/18 09/01/18 09/01/18 Range/Units 16:40 17:18 18:26 MCV (84-94) fl MCH (28-32) pg [place] % (Auto) (0.0-7.3) % Bell # (0.0-0.8) K/mm3 Sodium (137-145) mmol/L Potassium (3.6-5.0) mmol/L Chloride (98-107) mmol/L Carbon Dioxide (22-30) mmol/L Creatinine (0.8-1.5) mg/dL Glucose (75-100) mg/dL POC Glucose 214 H 193 H (70-105) Hemoglobin A1c (4-6) % Phosphorus 1.40 L (2.5-4.5) mg/dL Magnesium (1.7-2.3) mg/dL Total Creatine Kinase (55-170) units/L CK-MB (CK-2) (0.0-4.0) ng/mL Triglycerides (2-149) mg/dL Cholesterol (50-199) mg/dL LDL Cholesterol Direct (50-130) mg/dL HDL Cholesterol (40-59) mg/dL 09/01/18 09/01/18 09/01/18 Range/Units 19:03 20:10 20:18 MCV (84-94) fl MCH (28-32) pg [place] % (Auto) (0.0-7.3) % [place] # (0.0-0.8) K/mm3 Sodium 126 L (137-145) mmol/L Potassium (3.6-5.0) mmol/L Chloride 92.7 L (98-107) mmol/L Carbon Dioxide 12 L (22-30) mmol/L Creatinine 0.7 L (0.8-1.5) mg/dL Glucose 251 H (75-100) mg/dL POC Glucose 203 H 224 H (70-105) Hemoglobin A1c (4-6) % Phosphorus (2.5-4.5) mg/dL Magnesium (1.7-2.3) mg/dL Total Creatine Kinase (55-170) units/L CK-MB (CK-2) (0.0-4.0) ng/mL Triglycerides (2-149) mg/dL Cholesterol (50-199) mg/dL LDL Cholesterol Direct (50-130) mg/dL HDL Cholesterol (40-59) mg/dL 09/01/18 09/01/18 09/01/18 Range/Units 21:18 22:25 23:18 MCV (84-94) fl MCH (28-32) pg [place] % (Auto) (0.0-7.3) % Bell # (0.0-0.8) K/mm3 Sodium (137-145) mmol/L Potassium (3.6-5.0) mmol/L Chloride (98-107) mmol/L Carbon Dioxide (22-30) mmol/L Creatinine (0.8-1.5) mg/dL Glucose (75-100) mg/dL POC Glucose 188 H 196 H 175 H (70-105) Hemoglobin A1c (4-6) % Phosphorus (2.5-4.5) mg/dL Magnesium (1.7-2.3) mg/dL Total Creatine Kinase (55-170) units/L CK-MB (CK-2) (0.0-4.0) ng/mL Triglycerides (2-149) mg/dL Cholesterol (50-199) mg/dL LDL Cholesterol Direct (50-130) mg/dL HDL Cholesterol (40-59) mg/dL 09/02/18 09/02/18 09/02/18 Range/Units 00:10 00:59 02:03 MCV (84-94) fl MCH (28-32) pg [place] % (Auto) (0.0-7.3) % Bell # (0.0-0.8) K/mm3 Sodium (137-145) mmol/L Potassium (3.6-5.0) mmol/L Chloride (98-107) mmol/L Carbon Dioxide (22-30) mmol/L Creatinine (0.8-1.5) mg/dL Glucose (75-100) mg/dL POC Glucose 166 H 162 H 145 H (70-105) Hemoglobin A1c (4-6) % Phosphorus (2.5-4.5) mg/dL Magnesium (1.7-2.3) mg/dL Total Creatine Kinase (55-170) units/L CK-MB (CK-2) (0.0-4.0) ng/mL Triglycerides (2-149) mg/dL Cholesterol (50-199) mg/dL LDL Cholesterol Direct (50-130) mg/dL HDL Cholesterol (40-59) mg/dL 09/02/18 09/02/18 09/02/18 Range/Units 02: 04:10 04:22 MCV (84-94) fl MCH (28-32) pg [place] % (Auto) (0.0-7.3) % Bell # (0.0-0.8) K/mm3 Sodium 129 L (137-145) mmol/L Potassium 3.2 L (3.6-5.0) mmol/L Chloride 96.4 L (98-107) mmol/L Carbon Dioxide 17 L (22-30) mmol/L Creatinine 0.7 L (0.8-1.5) mg/dL Glucose 170 H (75-100) mg/dL POC Glucose 156 H 176 H (70-105) Hemoglobin A1c (4-6) % Phosphorus (2.5-4.5) mg/dL Magnesium (1.7-2.3) mg/dL Total Creatine Kinase (55-170) units/L CK-MB (CK-2) (0.0-4.0) ng/mL Triglycerides (2-149) mg/dL Cholesterol (50-199) mg/dL LDL Cholesterol Direct (50-130) mg/dL HDL Cholesterol (40-59) mg/dL 09/02/18 09/02/18 09/02/18 Range/Units 04:22 04:22 04:56 MCV 81 L (84-94) fl MCH 27 L (28-32) pg [place] % (Auto) 13.8 H (0.0-7.3) % Bell # 1.0 H (0.0-0.8) K/mm3 Sodium (137-145) mmol/L Potassium (3.6-5.0) mmol/L Chloride (98-107) mmol/L Carbon Dioxide (22-30) mmol/L Creatinine (0.8-1.5) mg/dL Glucose (75-100) mg/dL POC Glucose 159 H (70-105) Hemoglobin A1c (4-6) % Phosphorus 2.20 L D (2.5-4.5) mg/dL Magnesium (1.7-2.3) mg/dL Total Creatine Kinase (55-170) units/L CK-MB (CK-2) (0.0-4.0) ng/mL Triglycerides (2-149) mg/dL Cholesterol (50-199) mg/dL LDL Cholesterol Direct (50-130) mg/dL HDL Cholesterol (40-59) mg/dL 09/02/18 09/02/18 09/02/18 Range/Units 06:00 06:49 09:05 MCV (84-94) fl MCH (28-32) pg [place] % (Auto) (0.0-7.3) % Bell # (0.0-0.8) K/mm3 Sodium (137-145) mmol/L Potassium (3.6-5.0) mmol/L Chloride (98-107) mmol/L Carbon Dioxide (22-30) mmol/L Creatinine (0.8-1.5) mg/dL Glucose (75-100) mg/dL POC Glucose 167 H 138 H 178 H (70-105) Hemoglobin A1c (4-6) % Phosphorus (2.5-4.5) mg/dL Magnesium (1.7-2.3) mg/dL Total Creatine Kinase (55-170) units/L CK-MB (CK-2) (0.0-4.0) ng/mL Triglycerides (2-149) mg/dL Cholesterol (50-199) mg/dL LDL Cholesterol Direct (50-130) mg/dL HDL Cholesterol (40-59) mg/dL 09/02/18 Range/Units 10:22 MCV (84-94) fl MCH (28-32) pg [place] % (Auto) (0.0-7.3) % Bell # (0.0-0.8) K/mm3 Sodium 128 L (137-145) mmol/L Potassium 3.2 L (3.6-5.0) mmol/L Chloride 92.9 L (98-107) mmol/L Carbon Dioxide 11 L (22-30) mmol/L Creatinine (0.8-1.5) mg/dL Glucose 254 H (75-100) mg/dL POC Glucose (70-105) Hemoglobin A1c (4-6) % Phosphorus (2.5-4.5) mg/dL Magnesium (1.7-2.3) mg/dL Total Creatine Kinase (55-170) units/L CK-MB (CK-2) (0.0-4.0) ng/mL Triglycerides (2-149) mg/dL Cholesterol (50-199) mg/dL LDL Cholesterol Direct (50-130) mg/dL HDL Cholesterol (40-59) mg/dL Medications & Allergies - Medications Allergies/Adverse Reactions: Allergies No Known Allergies Allergy (Unverified 09/01/18 09:16) Home Medications: Home Medications Medication Instructions Recorded Confirmed Last Taken Type No Known Home Medications [No 09/01/18 09/01/18 Unknown History Reported Home Medications] Active Medications: Generic Name Dose Route Start Last Admin Trade Name Freq PRN Reason Stop Dose Admin Dextrose 0 ml 09/01/18 10:33 D50w (25gm) Syringe IV PRN PRN Hypoglycemia Enoxaparin Sodium 40 mg 09/01/18 22:00 09/01/18 21:12 Lovenox SUB-Q 40 mg QDAY@2200 DARNELL Administration Famotidine 20 mg 09/02/18 10:00 09/02/18 09:13 Pepcid PO 20 mg BID DARNELL Administration Hydralazine HCl 25 mg 09/01/18 14:00 09/02/18 06:43 Apresoline PO 25 mg Q8HR DARNELL Administration Hydralazine HCl 10 mg 09/01/18 12:48 Apresoline IV Q4HR PRN Hypertension Potassium Phosphate 30 mmol/ 510 mls @ 85 mls/hr 09/02/18 07:30 09/02/18 08:00 Sodium Chloride IV 09/02/18 13:29 85 mls/hr ONCE ONE Administration Insulin Human Isoph/Insulin Regular 8 unit 09/02/18 09:00 09/02/18 09:10 Humulin 70/30 SUB-Q 8 unit BIDDIAB DARNELL Administration Insulin Human Lispro 0 unit 09/02/18 09:00 09/02/18 09:17 Humalog SUB-Q 3 unit ACHS DARNELL Administration Protocol Potassium Chloride 20 meq 09/03/18 10:00 K-Dur PO QDAY DARNELL
[2018-09-02 15:10] LABS: BUN/Creatinine Ratio 13; Blood Urea Nitrogen 12 mg/dL (9-20); Calcium 8.6 mg/dL (8.4-10.2); Hemolysis Index 12
[2018-09-02] MEDS ORDERED: NACL 0.9% 500 ML 500 ML IV ONE (17:10)
[2018-09-02] MEDS: SODIUM BICARBONATE 50 MEQ in NACL 0.9% 1000 ML 1,000 ML IV SCH (17:12)
[2018-09-02] MEDS: LOVENOX SUB-Q SCH (21:29)
[2018-09-03 06:25] LABS: Hematocrit 38.4 % (35.5-45.6); Hemoglobin 12.9 gm/dl (11.8-15.2); Mean Corpuscular HGB Conc 34 % (32-34); Mean Corpuscular Volume 82 fl (84-94); Platelet Count 169 K/mm3 (140-440); Red Blood Count 4.69 M/mm3 (3.65-5.03); Red Cell Distribution Width 14.5 % (13.2-15.2)
[2018-09-03] MEDS: APRESOLINE PO SCH ×3 (06:34→22:39)
[2018-09-03 06:52] LABS: Alanine Aminotransferase 17 units/L (7-56); Albumin 3.3 g/dL (3.9-5); BUN/Creatinine Ratio 13; Blood Urea Nitrogen 9 mg/dL (9-20); Calcium 8.7 mg/dL (8.4-10.2); Hemolysis Index 4
[2018-09-03] MEDS: SODIUM BICARBONATE 50 MEQ in NACL 0.9% 1000 ML 1,000 ML IV SCH (06:58)
[2018-09-03 07:54] LABS: Basophils % (Manual) 0 % (0.0-1.8); Total Cells Counted 100
[2018-09-03 07:55] LABS: Anisocytosis 1+; Platelet Estimate Consistent w Auto; Poikilocytosis 1+; Target Cells Few
--- NOTE | 2018-09-03 08:10 | Progress Note ---
Assessment and Plan Assessment and plan: -- DKA;resolved, Anion gap closed, acidosis significantly improved, Continued IV fluids --Type 1 DM:A1c 12.9, moderate control Accu-Cheks ACHS, 7030 insulin adjust as needed diabetic education, nutrition consult --Severe metabolic acidosis; significantly improved Replacement therapy with bicarbonate as needed --Pseudo hyponatremia: Secondary to high glucose, as the glucose levels improved Sodium levels increase, closely monitor --Hypokalemia; replenishment per protocol --Hypophosphatemia; replenish per protocol --Hypertension well controlled, continue hydralazine as needed --Moderate malnutrition; nutrition supplements and supportive care --Morbid obesity : BMI 54.4 diet modification, exercise as tolerated And weight reduction --DVT prophylaxis; Lovenox Diabetic and nutrition education Possible discharge in 1-2 days if stable History Interval history: Patient seen and examined medical records reviewed Patient's sugars are reasonable control AAO x3, vital signs noted Blood sugars moderate control Hospitalist Physical - Constitutional Vitals: Temp Pulse Resp BP Pulse Ox 98.2 F 78 18 130/80 100 09/03/18 06:09 09/03/18 06:34 09/03/18 06:09 09/03/18 06:34 09/03/18 06:09 General appearance: Present: no acute distress, well-nourished, obese (morbidly obese) - EENT Eyes: Present: PERRL, EOM intact - Neck Neck: Present: supple, normal ROM - Respiratory Respiratory effort: normal Respiratory: bilateral: diminished, negative: rales, rhonchi, wheezing - Cardiovascular Rhythm: regular Heart Sounds: Present: S1 & S2 - Extremities Extremities: no ischemia, No edema - Abdominal General gastrointestinal: soft, non-tender, non-distended, normal bowel sounds - Integumentary Integumentary: Present: clear, warm - Psychiatric Psychiatric: appropriate mood/affect, cooperative - Neurologic Neurologic: CNII-XII intact, moves all extremities Results - Labs CBC & Chem 7: 09/03/18 05:43 09/03/18 05:43 Labs: Laboratory Last Values WBC 5.1 K/mm3 (4.5-11.0) 09/03/18 05:43 RBC 4.69 M/mm3 (3.65-5.03) 09/03/18 05:43 Hgb 12.9 gm/dl (11.8-15.2) 09/03/18 05:43 Hct 38.4 % (35.5-45.6) 09/03/18 05:43 MCV 82 fl (84-94) L 09/03/18 05:43 MCH 28 pg (28-32) 09/03/18 05:43 MCHC 34 % (32-34) 09/03/18 05:43 RDW 14.5 % (13.2-15.2) 09/03/18 05:43 Plt Count 169 K/mm3 (140-440) 09/03/18 05:43 Lymph % (Auto) 21.5 % (13.4-35.0) 09/02/18 04:22 O'Brien % (Auto) [employer] Engineering Technician 09/03/18 05:43 Eos % (Auto) 1.0 % (0.0-4.3) 09/02/18 04:22 Baso % (Auto) 1.0 % (0.0-1.8) 09/02/18 04:22 Lymph # 1.5 K/mm3 (1.2-5.4) 09/02/18 04:22 O'Brien # 1.0 K/mm3 (0.0-0.8) H 09/02/18 04:22 Eos # 0.1 K/mm3 (0.0-0.4) 09/02/18 04:22 Baso # 0.1 K/mm3 (0.0-0.1) 09/02/18 04:22 Add Manual Diff Complete 09/03/18 05:43 Total Counted 100 09/03/18 05:43 Seg Neutrophils % 62.7 % (40.0-70.0) 09/02/18 04:22 Seg Neuts % (Manual) 64.0 % (40.0-70.0) 09/03/18 05:43 Band Neutrophils % 0 % 09/03/18 05:43 Lymphocytes % (Manual) 21.0 % (13.4-35.0) 09/03/18 05:43 Reactive Lymphs % (Man) 0 % 09/03/18 05:43 Monocytes % (Manual) 14.0 % (0.0-7.3) H 09/03/18 05:43 Eosinophils % (Manual) 1.0 % (0.0-4.3) 09/03/18 05:43 Basophils % (Manual) 0 % (0.0-1.8) 09/03/18 05:43 Metamyelocytes % 0 % 09/03/18 05:43 Myelocytes % 0 % 09/03/18 05:43 Promyelocytes % 0 % 09/03/18 05:43 Blast Cells % 0 % 09/03/18 05:43 Nucleated RBC % Not Reportable 09/03/18 05:43 Seg Neutrophils # 4.5 K/mm3 (1.8-7.7) 09/02/18 04:22 Seg Neutrophils # Man 3.3 K/mm3 (1.8-7.7) 09/03/18 05:43 Band Neutrophils # 0.0 K/mm3 09/03/18 05:43 Lymphocytes # (Manual) 1.1 K/mm3 (1.2-5.4) L 09/03/18 05:43 Abs React Lymphs (Man) 0.0 K/mm3 09/03/18 05:43 Monocytes # (Manual) 0.7 K/mm3 (0.0-0.8) 09/03/18 05:43 Eosinophils # (Manual) 0.1 K/mm3 (0.0-0.4) 09/03/18 05:43 Basophils # (Manual) 0.0 K/mm3 (0.0-0.1) 09/03/18 05:43 Metamyelocytes # 0.0 K/mm3 09/03/18 05:43 Myelocytes # 0.0 K/mm3 09/03/18 05:43 Promyelocytes # 0.0 K/mm3 09/03/18 05:43 Blast Cells # 0.0 K/mm3 09/03/18 05:43 WBC Morphology Not Reportable 09/03/18 05:43 Hypersegmented Neuts Not Reportable 09/03/18 05:43 Hyposegmented Neuts Not Reportable 09/03/18 05:43 Hypogranular Neuts Not Reportable 09/03/18 05:43 Smudge Cells Not Reportable 09/03/18 05:43 Toxic Granulation Not Reportable 09/03/18 05:43 Toxic Vacuolation Not Reportable 09/03/18 05:43 Dohle Bodies Not Reportable 09/03/18 05:43 Pelger-Huet Anomaly Not Reportable 09/03/18 05:43 Katiana Rods Not Reportable 09/03/18 05:43 Platelet Estimate Consistent w auto 09/03/18 05:43 Clumped Platelets Not Reportable 09/03/18 05:43 Plt Clumps, EDTA Not Reportable 09/03/18 05:43 Large Platelets Not Reportable 09/03/18 05:43 Giant Platelets Not Reportable 09/03/18 05:43 Platelet Satelliting Not Reportable 09/03/18 05:43 Plt Morphology Comment Not Reportable 09/03/18 05:43 RBC Morphology Not Reportable 09/03/18 05:43 Dimorphic RBCs Not Reportable 09/03/18 05:43 Polychromasia Not Reportable 09/03/18 05:43 Hypochromasia Not Reportable 09/03/18 05:43 Poikilocytosis 1+ 09/03/18 05:43 Anisocytosis 1+ 09/03/18 05:43 Microcytosis Not Reportable 09/03/18 05:43 Macrocytosis Not Reportable 09/03/18 05:43 Spherocytes Not Reportable 09/03/18 05:43 Pappenheimer Bodies Not Reportable 09/03/18 05:43 Sickle Cells Not Reportable 09/03/18 05:43 Target Cells Few 09/03/18 05:43 Tear Drop Cells Not Reportable 09/03/18 05:43 Ovalocytes Not Reportable 09/03/18 05:43 Helmet Cells Not Reportable 09/03/18 05:43 [place] Bodies Not Reportable 09/03/18 05:43 [place] Rings Not Reportable 09/03/18 05:43 Carl Cells Not Reportable 09/03/18 05:43 Bite Cells Not Reportable 09/03/18 05:43 Crenated Cell Not Reportable 09/03/18 05:43 Elliptocytes Not Reportable 09/03/18 05:43 Acanthocytes (Spur) Not Reportable 09/03/18 05:43 Rouleaux Not Reportable 09/03/18 05:43 Hemoglobin C Crystals Not Reportable 09/03/18 05:43 Schistocytes Not Reportable 09/03/18 05:43 Malaria parasites Not Reportable 09/03/18 05:43 Jose Bodies Not Reportable 09/03/18 05:43 Hem Pathologist Commnt No 09/03/18 05:43 D-Dimer 295.65 ng/mlDDU (0-234) H 09/01/18 09:40 VBG pH 7.214 (7.320-7.420) L 09/01/18 09:13 Sodium 130 mmol/L (137-145) L 09/03/18 05:43 Potassium 3.0 mmol/L (3.6-5.0) L 09/03/18 05:43 Chloride 94.7 mmol/L (98-107) L 09/03/18 05:43 Carbon Dioxide 18 mmol/L (22-30) L 09/03/18 05:43 Anion Gap 20 mmol/L 09/03/18 05:43 BUN 9 mg/dL (9-20) 09/03/18 05:43 Creatinine 0.7 mg/dL (0.8-1.5) L 09/03/18 05:43 Estimated GFR > 60 ml/min 09/03/18 05:43 BUN/Creatinine Ratio 13 % 09/03/18 05:43 Glucose 284 mg/dL (75-100) H 09/03/18 05:43 POC Glucose 256 (70-105) H 09/03/18 08:03 Hemoglobin A1c 12.9 % (4-6) H 09/01/18 13:08 Calcium 8.7 mg/dL (8.4-10.2) 09/03/18 05:43 Phosphorus 3.00 mg/dL (2.5-4.5) D 09/03/18 05:43 Magnesium 2.00 mg/dL (1.7-2.3) 09/03/18 05:43 Total Bilirubin 0.40 mg/dL (0.1-1.2) 09/03/18 05:43 Direct Bilirubin < 0.2 mg/dL (0-0.2) 09/01/18 09:40 AST 15 units/L (5-40) 09/03/18 05:43 ALT 17 units/L (7-56) 09/03/18 05:43 Alkaline Phosphatase 71 units/L (35-129) 09/03/18 05:43 Total Creatine Kinase 456 units/L (55-170) H 09/01/18 09:40 CK-MB (CK-2) 4.6 ng/mL (0.0-4.0) H 09/01/18 09:40 CK-MB (CK-2) Rel Index 1.0 (0-4) 09/01/18 09:40 Troponin T < 0.010 ng/mL (0.00-0.029) 09/01/18 09:40 NT-Pro-B Natriuret Pep 42.18 pg/mL (0-450) 09/01/18 09:40 Total Protein 5.9 g/dL (6.3-8.2) L D 09/03/18 05:43 Albumin 3.3 g/dL (3.9-5) L 09/03/18 05:43 Albumin/Globulin Ratio 1.3 % 09/03/18 05:43 Triglycerides 151 mg/dL (2-149) H 09/01/18 13:08 Cholesterol 228 mg/dL (50-199) H 09/01/18 13:08 LDL Cholesterol Direct 182 mg/dL (50-130) H 09/01/18 13:08 HDL Cholesterol 28 mg/dL (40-59) L 09/01/18 13:08 Cholesterol/HDL Ratio 8.14 % 09/01/18 13:08 Urine Color Straw (Yellow) 09/01/18 11:25 Urine Turbidity Clear (Clear) 09/01/18 11:25 Urine pH 6.0 (5.0-7.0) 09/01/18 11:25 Ur Specific [employer] 1.021 (1.003-1.030) 09/01/18 11:25 Urine Protein 30 mg/dl mg/dL (Negative) 09/01/18 11:25 Urine Glucose (UA) >=500 mg/dL (Negative) 09/01/18 11:25 Urine Ketones 80 mg/dL (Negative) 09/01/18 11:25 Urine Blood Mod (Negative) 09/01/18 11:25 Urine Nitrite Neg (Negative) 09/01/18 11:25 Urine Bilirubin Neg (Negative) 09/01/18 11:25 Urine Urobilinogen < 2.0 mg/dL (<2.0) 09/01/18 11:25 Ur Leukocyte Esterase Neg (Negative) 09/01/18 11:25 Urine WBC (Auto) 1.0 /HPF (0.0-6.0) 09/01/18 11:25 Urine RBC (Auto) 1.0 /HPF (0.0-6.0) 09/01/18 11:25 U Epithel Cells (Auto) < 1.0 /HPF (0-13.0) 09/01/18 11:25 Urine Mucus Few /HPF 09/01/18 11:25 Nutrition/Malnutrition Assess - Dietary Evaluation Nutrition/Malnutrition Findings: Nutrition Notes Start: 09/02/18 13:33 Freq: Status: Active Protocol: Document 09/02/18 13:33 CT (Rec: 09/02/18 13:46 CT [id number]) Co-Sign 09/02/18 13:33 OL Nutrition Notes Need for Assessment generated from: MD Order Education Initial or Follow up Brief Note Current Diagnosis Diabetes Other Pertinent Diagnosis DKA Current Diet Consistent CHO Labs/Tests A1C: 12.9 Pertinent Medications Insulin Height 5 ft 11 in Weight 174.9 kg [place] Body Weight (kg) 78.18 BMI 53.7 Weight Status Morbidly Obese Subjective/Other Information RD consulted for diet education. Delivered DM education relative to choosing appropriate CHO sources, quantity and portion control, and the importance of compliance. Provided information about free counseling resources. #1 Nutrition Diagnosis Food and nutrition-related knowledge deficit Etiology lack of prior nutrition- related education As Evidenced by Signs and Symptoms pt reported no prior diet education, A1C 12.9. Nutrition Intervention Teaching Recipient Patient Learning Readiness Good Teaching Methods Discussion Handout Response to Teaching Verbalize understanding Education Handouts Provided CHO Counting, Sx of hyper/ hypoglycemia Barriers to Learning Social RD phone number provided Yes Patient aware of follow up options Yes Anticipated Discharge Needs: Consistent CHO Revisit per MD consult or patient Sign Off request:
[2018-09-03] MEDS: HumaLOG SUB-Q SCH ×4 (09:15→22:40)
[2018-09-03] MEDS: K-DUR PO SCH ×3 (09:17→15:43)
[2018-09-03] MEDS: PEPCID PO SCH ×2 (09:17→22:39)
[2018-09-03] MEDS: LOVENOX SUB-Q SCH (22:39)
[2018-09-04] MEDS: APRESOLINE PO SCH ×3 (06:17→21:52)
--- NOTE | 2018-09-04 07:48 | Progress Note ---
Assessment and Plan Assessment and plan: -- DKA;resolved, --New-onset DM:A1c 12.9, moderate control Accu-Cheks ACHS, increase 7030 insulin to 30 units twice a day Diabetic education and nutrition education --Severe metabolic acidosis; significantly improved Replacement therapy with bicarbonate as needed --Pseudo hyponatremia: Secondary to high glucose, as the glucose levels improved Sodium levels increase, closely monitor --Hypokalemia; replenishment per protocol --Hypophosphatemia; replenish per protocol --Hypertension well controlled, continue hydralazine as needed --Moderate malnutrition; nutrition supplements and supportive care --Morbid obesity : BMI 54.4 diet modification, exercise as tolerated And weight reduction --DVT prophylaxis; Lovenox Diabetic and nutrition education Possible discharge in 1-2 days if stable History Interval history: Patient seen and examined medical records reviewed Admitted with DKA, resolved, now uncontrolled blood sugars Patient is noncompliant with medications and food Alert awake oriented Vital signs reviewed Hospitalist Physical - Constitutional Vitals: Temp Pulse Resp BP Pulse Ox 97.1 F L 87 18 129/81 99 09/04/18 06:16 09/04/18 06:17 09/04/18 06:16 09/04/18 06:17 09/04/18 06:16 General appearance: Present: no acute distress, well-nourished, obese (morbidly obese) - EENT Eyes: Present: PERRL, EOM intact - Neck Neck: Present: supple, normal ROM - Respiratory Respiratory effort: normal Respiratory: negative: rales, rhonchi - Cardiovascular Rhythm: regular Heart Sounds: Present: S1 & S2 - Extremities Extremities: no ischemia, No edema - Abdominal General gastrointestinal: soft, non-tender, non-distended, normal bowel sounds - Integumentary Integumentary: Present: clear, warm - Psychiatric Psychiatric: appropriate mood/affect, cooperative - Neurologic Neurologic: CNII-XII intact, moves all extremities Results - Labs CBC & Chem 7: 09/03/18 05:43 09/04/18 08:51 Labs: Laboratory Last Values WBC 5.1 K/mm3 (4.5-11.0) 09/03/18 05:43 RBC 4.69 M/mm3 (3.65-5.03) 09/03/18 05:43 Hgb 12.9 gm/dl (11.8-15.2) 09/03/18 05:43 Hct 38.4 % (35.5-45.6) 09/03/18 05:43 MCV 82 fl (84-94) L 09/03/18 05:43 MCH 28 pg (28-32) 09/03/18 05:43 MCHC 34 % (32-34) 09/03/18 05:43 RDW 14.5 % (13.2-15.2) 09/03/18 05:43 Plt Count 169 K/mm3 (140-440) 09/03/18 05:43 Lymph % (Auto) 21.5 % (13.4-35.0) 09/02/18 04:22 Pierce % (Auto) Ad Setter 09/03/18 05:43 Eos % (Auto) 1.0 % (0.0-4.3) 09/02/18 04:22 Baso % (Auto) 1.0 % (0.0-1.8) 09/02/18 04:22 Lymph # 1.5 K/mm3 (1.2-5.4) 09/02/18 04:22 Pierce # 1.0 K/mm3 (0.0-0.8) H 09/02/18 04:22 Eos # 0.1 K/mm3 (0.0-0.4) 09/02/18 04:22 Baso # 0.1 K/mm3 (0.0-0.1) 09/02/18 04:22 Add Manual Diff Complete 09/03/18 05:43 Total Counted 100 09/03/18 05:43 Seg Neutrophils % 62.7 % (40.0-70.0) 09/02/18 04:22 Seg Neuts % (Manual) 64.0 % (40.0-70.0) 09/03/18 05:43 Band Neutrophils % 0 % 09/03/18 05:43 Lymphocytes % (Manual) 21.0 % (13.4-35.0) 09/03/18 05:43 Reactive Lymphs % (Man) 0 % 09/03/18 05:43 Monocytes % (Manual) 14.0 % (0.0-7.3) H 09/03/18 05:43 Eosinophils % (Manual) 1.0 % (0.0-4.3) 09/03/18 05:43 Basophils % (Manual) 0 % (0.0-1.8) 09/03/18 05:43 Metamyelocytes % 0 % 09/03/18 05:43 Myelocytes % 0 % 09/03/18 05:43 Promyelocytes % 0 % 09/03/18 05:43 Blast Cells % 0 % 09/03/18 05:43 Nucleated RBC % Not Reportable 09/03/18 05:43 Seg Neutrophils # 4.5 K/mm3 (1.8-7.7) 09/02/18 04:22 Seg Neutrophils # Man 3.3 K/mm3 (1.8-7.7) 09/03/18 05:43 Band Neutrophils # 0.0 K/mm3 09/03/18 05:43 Lymphocytes # (Manual) 1.1 K/mm3 (1.2-5.4) L 09/03/18 05:43 Abs React Lymphs (Man) 0.0 K/mm3 09/03/18 05:43 Monocytes # (Manual) 0.7 K/mm3 (0.0-0.8) 09/03/18 05:43 Eosinophils # (Manual) 0.1 K/mm3 (0.0-0.4) 09/03/18 05:43 Basophils # (Manual) 0.0 K/mm3 (0.0-0.1) 09/03/18 05:43 Metamyelocytes # 0.0 K/mm3 09/03/18 05:43 Myelocytes # 0.0 K/mm3 09/03/18 05:43 Promyelocytes # 0.0 K/mm3 09/03/18 05:43 Blast Cells # 0.0 K/mm3 09/03/18 05:43 WBC Morphology Not Reportable 09/03/18 05:43 Hypersegmented Neuts Not Reportable 09/03/18 05:43 Hyposegmented Neuts Not Reportable 09/03/18 05:43 Hypogranular Neuts Not Reportable 09/03/18 05:43 Smudge Cells Not Reportable 09/03/18 05:43 Toxic Granulation Not Reportable 09/03/18 05:43 Toxic Vacuolation Not Reportable 09/03/18 05:43 Dohle Bodies Not Reportable 09/03/18 05:43 Pelger-Huet Anomaly Not Reportable 09/03/18 05:43 Katiana Rods Not Reportable 09/03/18 05:43 Platelet Estimate Consistent w auto 09/03/18 05:43 Clumped Platelets Not Reportable 09/03/18 05:43 Plt Clumps, EDTA Not Reportable 09/03/18 05:43 Large Platelets Not Reportable 09/03/18 05:43 Giant Platelets Not Reportable 09/03/18 05:43 Platelet Satelliting Not Reportable 09/03/18 05:43 Plt Morphology Comment Not Reportable 09/03/18 05:43 RBC Morphology Not Reportable 09/03/18 05:43 Dimorphic RBCs Not Reportable 09/03/18 05:43 Polychromasia Not Reportable 09/03/18 05:43 Hypochromasia Not Reportable 09/03/18 05:43 Poikilocytosis 1+ 09/03/18 05:43 Anisocytosis 1+ 09/03/18 05:43 Microcytosis Not Reportable 09/03/18 05:43 Macrocytosis Not Reportable 09/03/18 05:43 Spherocytes Not Reportable 09/03/18 05:43 Pappenheimer Bodies Not Reportable 09/03/18 05:43 Sickle Cells Not Reportable 09/03/18 05:43 Target Cells Few 09/03/18 05:43 Tear Drop Cells Not Reportable 09/03/18 05:43 Ovalocytes Not Reportable 09/03/18 05:43 Helmet Cells Not Reportable 09/03/18 05:43 [place] Bodies Not Reportable 09/03/18 05:43 [place] Rings Not Reportable 09/03/18 05:43 Carl Cells Not Reportable 09/03/18 05:43 Bite Cells Not Reportable 09/03/18 05:43 Crenated Cell Not Reportable 09/03/18 05:43 Elliptocytes Not Reportable 09/03/18 05:43 Acanthocytes (Spur) Not Reportable 09/03/18 05:43 Rouleaux Not Reportable 09/03/18 05:43 Hemoglobin C Crystals Not Reportable 09/03/18 05:43 Schistocytes Not Reportable 09/03/18 05:43 Malaria parasites Not Reportable 09/03/18 05:43 Jose Bodies Not Reportable 09/03/18 05:43 Hem Pathologist Commnt No 09/03/18 05:43 D-Dimer 295.65 ng/mlDDU (0-234) H 09/01/18 09:40 VBG pH 7.214 (7.320-7.420) L 09/01/18 09:13 Sodium 130 mmol/L (137-145) L 09/03/18 05:43 Potassium 3.0 mmol/L (3.6-5.0) L 09/03/18 05:43 Chloride 94.7 mmol/L (98-107) L 09/03/18 05:43 Carbon Dioxide 18 mmol/L (22-30) L 09/03/18 05:43 Anion Gap 20 mmol/L 09/03/18 05:43 BUN 9 mg/dL (9-20) 09/03/18 05:43 Creatinine 0.7 mg/dL (0.8-1.5) L 09/03/18 05:43 Estimated GFR > 60 ml/min 09/03/18 05:43 BUN/Creatinine Ratio 13 % 09/03/18 05:43 Glucose 284 mg/dL (75-100) H 09/03/18 05:43 POC Glucose 280 (70-105) H 09/03/18 21:40 Hemoglobin A1c 12.9 % (4-6) H 09/01/18 13:08 Calcium 8.7 mg/dL (8.4-10.2) 09/03/18 05:43 Phosphorus 3.00 mg/dL (2.5-4.5) D 09/03/18 05:43 Magnesium 2.00 mg/dL (1.7-2.3) 09/03/18 05:43 Total Bilirubin 0.40 mg/dL (0.1-1.2) 09/03/18 05:43 Direct Bilirubin < 0.2 mg/dL (0-0.2) 09/01/18 09:40 AST 15 units/L (5-40) 09/03/18 05:43 ALT 17 units/L (7-56) 09/03/18 05:43 Alkaline Phosphatase 71 units/L (35-129) 09/03/18 05:43 Total Creatine Kinase 456 units/L (55-170) H 09/01/18 09:40 CK-MB (CK-2) 4.6 ng/mL (0.0-4.0) H 09/01/18 09:40 CK-MB (CK-2) Rel Index 1.0 (0-4) 09/01/18 09:40 Troponin T < 0.010 ng/mL (0.00-0.029) 09/01/18 09:40 NT-Pro-B Natriuret Pep 42.18 pg/mL (0-450) 09/01/18 09:40 Total Protein 5.9 g/dL (6.3-8.2) L D 09/03/18 05:43 Albumin 3.3 g/dL (3.9-5) L 09/03/18 05:43 Albumin/Globulin Ratio 1.3 % 09/03/18 05:43 Triglycerides 151 mg/dL (2-149) H 09/01/18 13:08 Cholesterol 228 mg/dL (50-199) H 09/01/18 13:08 LDL Cholesterol Direct 182 mg/dL (50-130) H 09/01/18 13:08 HDL Cholesterol 28 mg/dL (40-59) L 09/01/18 13:08 Cholesterol/HDL Ratio 8.14 % 09/01/18 13:08 Urine Color Straw (Yellow) 09/01/18 11:25 Urine Turbidity Clear (Clear) 09/01/18 11:25 Urine pH 6.0 (5.0-7.0) 09/01/18 11:25 Ur Specific [place] 1.021 (1.003-1.030) 09/01/18 11:25 Urine Protein 30 mg/dl mg/dL (Negative) 09/01/18 11:25 Urine Glucose (UA) >=500 mg/dL (Negative) 09/01/18 11:25 Urine Ketones 80 mg/dL (Negative) 09/01/18 11:25 Urine Blood Mod (Negative) 09/01/18 11:25 Urine Nitrite Neg (Negative) 09/01/18 11:25 Urine Bilirubin Neg (Negative) 09/01/18 11:25 Urine Urobilinogen < 2.0 mg/dL (<2.0) 09/01/18 11:25 Ur Leukocyte Esterase Neg (Negative) 09/01/18 11:25 Urine WBC (Auto) 1.0 /HPF (0.0-6.0) 09/01/18 11:25 Urine RBC (Auto) 1.0 /HPF (0.0-6.0) 09/01/18 11:25 U Epithel Cells (Auto) < 1.0 /HPF (0-13.0) 09/01/18 11:25 Urine Mucus Few /HPF 09/01/18 11:25 Nutrition/Malnutrition Assess - Dietary Evaluation Nutrition/Malnutrition Findings: Nutrition Notes Start: 09/02/18 13:33 Freq: Status: Active Protocol: Document 09/02/18 13:33 CT (Rec: 09/02/18 13:46 CT [id number]) Co-Sign 09/02/18 13:33 OL Nutrition Notes Need for Assessment generated from: MD Order Education Initial or Follow up Brief Note Current Diagnosis Diabetes Other Pertinent Diagnosis DKA Current Diet Consistent CHO Labs/Tests A1C: 12.9 Pertinent Medications Insulin Height 5 ft 11 in Weight 174.9 kg [place] Body Weight (kg) 78.18 BMI 53.7 Weight Status Morbidly Obese Subjective/Other Information RD consulted for diet education. Delivered DM education relative to choosing appropriate CHO sources, quantity and portion control, and the importance of compliance. Provided information about free counseling resources. #1 Nutrition Diagnosis Food and nutrition-related knowledge deficit Etiology lack of prior nutrition- related education As Evidenced by Signs and Symptoms pt reported no prior diet education, A1C 12.9. Nutrition Intervention Teaching Recipient Patient Learning Readiness Good Teaching Methods Discussion Handout Response to Teaching Verbalize understanding Education Handouts Provided CHO Counting, Sx of hyper/ hypoglycemia Barriers to Learning Social RD phone number provided Yes Patient aware of follow up options Yes Anticipated Discharge Needs: Consistent CHO Revisit per MD consult or patient Sign Off request:
[2018-09-04] MEDS: HumaLOG SUB-Q SCH ×4 (08:26→21:53)
[2018-09-04] MEDS: PEPCID PO SCH ×2 (09:22→21:52)
[2018-09-04] MEDS: K-DUR PO SCH (09:22)
[2018-09-04 10:14] LABS: BUN/Creatinine Ratio 12; Blood Urea Nitrogen 7 mg/dL (9-20); Calcium 8.9 mg/dL (8.4-10.2); Hemolysis Index 15
[2018-09-04] MEDS: GLUCOPHAGE PO SCH (16:49)
[2018-09-04] MEDS: LOVENOX SUB-Q SCH (21:52)
[2018-09-05] MEDS: APRESOLINE PO SCH ×3 (05:17→23:42)
[2018-09-05 05:40] LABS: BUN/Creatinine Ratio 10; Blood Urea Nitrogen 6 mg/dL (9-20); Hemolysis Index 30
[2018-09-05] MEDS: GLUCOPHAGE PO SCH ×2 (08:34→17:15)
[2018-09-05] MEDS: HumaLOG SUB-Q SCH ×3 (08:35→17:15)
[2018-09-05] MEDS ORDERED: K-DUR PO ONE (10:00)
[2018-09-05] MEDS: PEPCID PO SCH ×2 (10:18→23:43)
[2018-09-05] MEDS: K-DUR PO SCH (10:19)
--- NOTE | 2018-09-05 15:05 | Progress Note ---
Assessment and Plan Assessment and plan: -- DKA;resolved, --New-onset DM:A1c 12.9, moderate control Accu-Cheks ACHS, increase 7030 insulin to 42 units twice a day Diabetic education and nutrition education --Severe metabolic acidosis; significantly improved Replacement therapy with bicarbonate as needed --Pseudo hyponatremia: Secondary to high glucose, as the glucose levels improved Sodium levels increase, closely monitor --Hypokalemia; replenishment per protocol --Hypophosphatemia; replenish per protocol --Hypertension well controlled, continue hydralazine as needed --Moderate malnutrition; nutrition supplements and supportive care --Morbid obesity : BMI 54.4 diet modification, exercise as tolerated And weight reduction --DVT prophylaxis; Lovenox Diabetic and nutrition education Possible discharge in 1-2 days if stable History Interval history: Sincerely and examined medical records reviewed Patient feels slightly better no new complaints Blood sugars are still uncontrolled Adjust the dose of insulin as needed Patient has no new complaints Vital signs noted Hospitalist Physical - Constitutional Vitals: Temp Pulse Resp BP Pulse Ox 97.6 F 97 H 20 145/91 99 09/05/18 05:16 09/05/18 12:19 09/05/18 05:16 09/05/18 12:19 09/05/18 12:19 General appearance: Present: no acute distress, well-nourished, obese (morbidly obese) - EENT Eyes: Present: PERRL, EOM intact - Neck Neck: Present: supple, normal ROM - Respiratory Respiratory effort: normal Respiratory: bilateral: diminished, negative: rales, rhonchi, wheezing - Cardiovascular Rhythm: regular Heart Sounds: Present: S1 & S2 - Extremities Extremities: no ischemia, No edema - Abdominal General gastrointestinal: soft, non-tender, non-distended, normal bowel sounds - Integumentary Integumentary: Present: clear, warm - Psychiatric Psychiatric: appropriate mood/affect, cooperative - Neurologic Neurologic: moves all extremities Results - Labs CBC & Chem 7: 09/03/18 05:43 09/05/18 05:05 Labs: Laboratory Last Values WBC 5.1 K/mm3 (4.5-11.0) 09/03/18 05:43 RBC 4.69 M/mm3 (3.65-5.03) 09/03/18 05:43 Hgb 12.9 gm/dl (11.8-15.2) 09/03/18 05:43 Hct 38.4 % (35.5-45.6) 09/03/18 05:43 MCV 82 fl (84-94) L 09/03/18 05:43 MCH 28 pg (28-32) 09/03/18 05:43 MCHC 34 % (32-34) 09/03/18 05:43 RDW 14.5 % (13.2-15.2) 09/03/18 05:43 Plt Count 169 K/mm3 (140-440) 09/03/18 05:43 Lymph % (Auto) 21.5 % (13.4-35.0) 09/02/18 04:22 [place] % (Auto) [employer]al 09/03/18 05:43 Eos % (Auto) 1.0 % (0.0-4.3) 09/02/18 04:22 Baso % (Auto) 1.0 % (0.0-1.8) 09/02/18 04:22 Lymph # 1.5 K/mm3 (1.2-5.4) 09/02/18 04:22 [place] # 1.0 K/mm3 (0.0-0.8) H 09/02/18 04:22 Eos # 0.1 K/mm3 (0.0-0.4) 09/02/18 04:22 Baso # 0.1 K/mm3 (0.0-0.1) 09/02/18 04:22 Add Manual Diff Complete 09/03/18 05:43 Total Counted 100 09/03/18 05:43 Seg Neutrophils % 62.7 % (40.0-70.0) 09/02/18 04:22 Seg Neuts % (Manual) 64.0 % (40.0-70.0) 09/03/18 05:43 Band Neutrophils % 0 % 09/03/18 05:43 Lymphocytes % (Manual) 21.0 % (13.4-35.0) 09/03/18 05:43 Reactive Lymphs % (Man) 0 % 09/03/18 05:43 Monocytes % (Manual) 14.0 % (0.0-7.3) H 09/03/18 05:43 Eosinophils % (Manual) 1.0 % (0.0-4.3) 09/03/18 05:43 Basophils % (Manual) 0 % (0.0-1.8) 09/03/18 05:43 Metamyelocytes % 0 % 09/03/18 05:43 Myelocytes % 0 % 09/03/18 05:43 Promyelocytes % 0 % 09/03/18 05:43 Blast Cells % 0 % 09/03/18 05:43 Nucleated RBC % Not Reportable 09/03/18 05:43 Seg Neutrophils # 4.5 K/mm3 (1.8-7.7) 09/02/18 04:22 Seg Neutrophils # Man 3.3 K/mm3 (1.8-7.7) 09/03/18 05:43 Band Neutrophils # 0.0 K/mm3 09/03/18 05:43 Lymphocytes # (Manual) 1.1 K/mm3 (1.2-5.4) L 09/03/18 05:43 Abs React Lymphs (Man) 0.0 K/mm3 09/03/18 05:43 Monocytes # (Manual) 0.7 K/mm3 (0.0-0.8) 09/03/18 05:43 Eosinophils # (Manual) 0.1 K/mm3 (0.0-0.4) 09/03/18 05:43 Basophils # (Manual) 0.0 K/mm3 (0.0-0.1) 09/03/18 05:43 Metamyelocytes # 0.0 K/mm3 09/03/18 05:43 Myelocytes # 0.0 K/mm3 09/03/18 05:43 Promyelocytes # 0.0 K/mm3 09/03/18 05:43 Blast Cells # 0.0 K/mm3 09/03/18 05:43 WBC Morphology Not Reportable 09/03/18 05:43 Hypersegmented Neuts Not Reportable 09/03/18 05:43 Hyposegmented Neuts Not Reportable 09/03/18 05:43 Hypogranular Neuts Not Reportable 09/03/18 05:43 Smudge Cells Not Reportable 09/03/18 05:43 Toxic Granulation Not Reportable 09/03/18 05:43 Toxic Vacuolation Not Reportable 09/03/18 05:43 Dohle Bodies Not Reportable 09/03/18 05:43 Pelger-Huet Anomaly Not Reportable 09/03/18 05:43 Katiana Rods Not Reportable 09/03/18 05:43 Platelet Estimate Consistent w auto 09/03/18 05:43 Clumped Platelets Not Reportable 09/03/18 05:43 Plt Clumps, EDTA Not Reportable 09/03/18 05:43 Large Platelets Not Reportable 09/03/18 05:43 Giant Platelets Not Reportable 09/03/18 05:43 Platelet Satelliting Not Reportable 09/03/18 05:43 Plt Morphology Comment Not Reportable 09/03/18 05:43 RBC Morphology Not Reportable 09/03/18 05:43 Dimorphic RBCs Not Reportable 09/03/18 05:43 Polychromasia Not Reportable 09/03/18 05:43 Hypochromasia Not Reportable 09/03/18 05:43 Poikilocytosis 1+ 09/03/18 05:43 Anisocytosis 1+ 09/03/18 05:43 Microcytosis Not Reportable 09/03/18 05:43 Macrocytosis Not Reportable 09/03/18 05:43 Spherocytes Not Reportable 09/03/18 05:43 Pappenheimer Bodies Not Reportable 09/03/18 05:43 Sickle Cells Not Reportable 09/03/18 05:43 Target Cells Few 09/03/18 05:43 Tear Drop Cells Not Reportable 09/03/18 05:43 Ovalocytes Not Reportable 09/03/18 05:43 Helmet Cells Not Reportable 09/03/18 05:43 [place] Bodies Not Reportable 09/03/18 05:43 [place] Rings Not Reportable 09/03/18 05:43 [place] Cells Not Reportable 09/03/18 05:43 Bite Cells Not Reportable 09/03/18 05:43 Crenated Cell Not Reportable 09/03/18 05:43 Elliptocytes Not Reportable 09/03/18 05:43 Acanthocytes (Spur) Not Reportable 09/03/18 05:43 Rouleaux Not Reportable 09/03/18 05:43 Hemoglobin C Crystals Not Reportable 09/03/18 05:43 Schistocytes Not Reportable 09/03/18 05:43 Malaria parasites Not Reportable 09/03/18 05:43 Jose Bodies Not Reportable 09/03/18 05:43 Hem Pathologist Commnt No 09/03/18 05:43 D-Dimer 295.65 ng/mlDDU (0-234) H 09/01/18 09:40 VBG pH 7.214 (7.320-7.420) L 09/01/18 09:13 Sodium 134 mmol/L (137-145) L 09/05/18 05:05 Potassium 3.5 mmol/L (3.6-5.0) L 09/05/18 05:05 Chloride 99.0 mmol/L (98-107) 09/05/18 05:05 Carbon Dioxide 22 mmol/L (22-30) 09/05/18 05:05 Anion Gap 17 mmol/L 09/05/18 05:05 BUN 6 mg/dL (9-20) L 09/05/18 05:05 Creatinine 0.6 mg/dL (0.8-1.5) L 09/05/18 05:05 Estimated GFR > 60 ml/min 09/05/18 05:05 BUN/Creatinine Ratio 10 % 09/05/18 05:05 Glucose 223 mg/dL (75-100) H 09/05/18 05:05 POC Glucose 275 (70-105) H 09/05/18 11:15 Hemoglobin A1c 12.9 % (4-6) H 09/01/18 13:08 Calcium 9.0 mg/dL (8.4-10.2) 09/05/18 05:05 Phosphorus 3.20 mg/dL (2.5-4.5) 09/05/18 05:05 Magnesium 2.00 mg/dL (1.7-2.3) 09/05/18 05:05 Total Bilirubin 0.40 mg/dL (0.1-1.2) 09/03/18 05:43 Direct Bilirubin < 0.2 mg/dL (0-0.2) 09/01/18 09:40 AST 15 units/L (5-40) 09/03/18 05:43 ALT 17 units/L (7-56) 09/03/18 05:43 Alkaline Phosphatase 71 units/L (35-129) 09/03/18 05:43 Total Creatine Kinase 456 units/L (55-170) H 09/01/18 09:40 CK-MB (CK-2) 4.6 ng/mL (0.0-4.0) H 09/01/18 09:40 CK-MB (CK-2) Rel Index 1.0 (0-4) 09/01/18 09:40 Troponin T < 0.010 ng/mL (0.00-0.029) 09/01/18 09:40 NT-Pro-B Natriuret Pep 42.18 pg/mL (0-450) 09/01/18 09:40 Total Protein 5.9 g/dL (6.3-8.2) L D 09/03/18 05:43 Albumin 3.3 g/dL (3.9-5) L 09/03/18 05:43 Albumin/Globulin Ratio 1.3 % 09/03/18 05:43 Triglycerides 151 mg/dL (2-149) H 09/01/18 13:08 Cholesterol 228 mg/dL (50-199) H 09/01/18 13:08 LDL Cholesterol Direct 182 mg/dL (50-130) H 09/01/18 13:08 HDL Cholesterol 28 mg/dL (40-59) L 09/01/18 13:08 Cholesterol/HDL Ratio 8.14 % 09/01/18 13:08 Urine Color Straw (Yellow) 09/01/18 11:25 Urine Turbidity Clear (Clear) 09/01/18 11:25 Urine pH 6.0 (5.0-7.0) 09/01/18 11:25 Ur Specific [place] 1.021 (1.003-1.030) 09/01/18 11:25 Urine Protein 30 mg/dl mg/dL (Negative) 09/01/18 11:25 Urine Glucose (UA) >=500 mg/dL (Negative) 09/01/18 11:25 Urine Ketones 80 mg/dL (Negative) 09/01/18 11:25 Urine Blood Mod (Negative) 09/01/18 11:25 Urine Nitrite Neg (Negative) 09/01/18 11:25 Urine Bilirubin Neg (Negative) 09/01/18 11:25 Urine Urobilinogen < 2.0 mg/dL (<2.0) 09/01/18 11:25 Ur Leukocyte Esterase Neg (Negative) 09/01/18 11:25 Urine WBC (Auto) 1.0 /HPF (0.0-6.0) 09/01/18 11:25 Urine RBC (Auto) 1.0 /HPF (0.0-6.0) 09/01/18 11:25 U Epithel Cells (Auto) < 1.0 /HPF (0-13.0) 09/01/18 11:25 Urine Mucus Few /HPF 09/01/18 11:25 Nutrition/Malnutrition Assess - Dietary Evaluation Nutrition/Malnutrition Findings: Nutrition Notes Start: 09/02/18 13:33 Freq: Status: Active Protocol: Document 09/02/18 13:33 CT (Rec: 09/02/18 13:46 CT [id number]) Co-Sign 09/02/18 13:33 OL Nutrition Notes Need for Assessment generated from: MD Order Education Initial or Follow up Brief Note Current Diagnosis Diabetes Other Pertinent Diagnosis DKA Current Diet Consistent CHO Labs/Tests A1C: 12.9 Pertinent Medications Insulin Height 5 ft 11 in Weight 174.9 kg [place] Body Weight (kg) 78.18 BMI 53.7 Weight Status Morbidly Obese Subjective/Other Information RD consulted for diet education. Delivered DM education relative to choosing appropriate CHO sources, quantity and portion control, and the importance of compliance. Provided information about free counseling resources. #1 Nutrition Diagnosis Food and nutrition-related knowledge deficit Etiology lack of prior nutrition- related education As Evidenced by Signs and Symptoms pt reported no prior diet education, A1C 12.9. Nutrition Intervention Teaching Recipient Patient Learning Readiness Good Teaching Methods Discussion Handout Response to Teaching Verbalize understanding Education Handouts Provided CHO Counting, Sx of hyper/ hypoglycemia Barriers to Learning Social RD phone number provided Yes Patient aware of follow up options Yes Anticipated Discharge Needs: Consistent CHO Revisit per MD consult or patient Sign Off request:
[2018-09-05] MEDS: LOVENOX SUB-Q SCH (23:42)
[2018-09-06 05:59] LABS: BUN/Creatinine Ratio 9; Blood Urea Nitrogen 6 mg/dL (9-20); Calcium 9.3 mg/dL (8.4-10.2); Hemolysis Index 58
[2018-09-06] MEDS: APRESOLINE PO SCH ×2 (06:00→13:43)
[2018-09-06] MEDS: HumaLOG SUB-Q SCH ×3 (08:35→12:50)
[2018-09-06] MEDS: PEPCID PO SCH (09:38)
[2018-09-06] MEDS: GLUCOPHAGE PO SCH (09:38)
[2018-09-06] MEDS: K-DUR PO SCH (09:39)
[2018-09-06 13:35] VITALS: BP 133/78
--- NOTE | 2018-09-06 13:49 | Discharge Summary ---
Providers - Providers Date of Admission: 09/01/18 10:53 Date of discharge: 09/06/18 Attending physician: KRISH VERDUGO 09/01/18 12:30 Consult to Dietitian/Nutrition [CONS] Routine Physician Instructions: Reason For Exam: DKA Reason for Consult: Nutrition Recommendations Reason for Consult: Diet education Consult to Physician [CONS] Routine Comment: Consulting Provider: BERTHA GORDILLO Physician Instructions: Reason For Exam: DKA / Cr Care consult 09/01/18 12:34 Consult to Dietitian/Nutrition [CONS] Routine Physician Instructions: Reason For Exam: DKA Reason for Consult: Nutrition Recommendations Reason for Consult: Diet education Primary care physician: BAHMAN AGUILERA Hospitalization Reason for admission: Diabetic ketoacidosis Condition: Fair Hospital course: Morbidly obese 37 yr old male pt was admitted through ER with gen weakness and Diabetic Keto acidosis.Admitted to ICU, Started on DKA pathway, stabilised and transferred to the floor Patient's A1c 12.9%, Received Diabetic education,nutrition education. Advised weight reduction. Today patient is comfortable,no new complaints,vital signs stable Physical exam is unremarkable. Stable at discharge Discharge Diagnosis: -- DKA;resolved, --New-onset DM:A1c 12.9, moderate control Accu-Cheks,SSC 70/30 insulin twice a day Diabetic education and nutrition education --Severe metabolic acidosis; significantly improved --Pseudo hyponatremia: Secondary to high glucose, resolved --Hypokalemia; replenished per protocol,resolved --Hypophosphatemia; replenished, resolved --Hypertension well controlled, continue hydralazine as needed --Moderate malnutrition; nutrition supplements --Morbid obesity : BMI 54.4 advised , diet modification, exercise as tolerated And weight reduction --DVT prophylaxis; Lovenox Diabetic and nutrition education Disposition: DC-01 TO HOME OR SELFCARE Time spent for discharge: 32 min Core Measure Documentation - Palliative Care Palliative Care/ Comfort Measures: Not Applicable - Core Measures Any of the following diagnoses?: none Exam - Constitutional Vitals: Temp Pulse Resp BP Pulse Ox 98.5 F 93 H 16 133/78 98 09/06/18 13:32 09/06/18 13:43 09/06/18 13:32 09/06/18 13:43 09/06/18 13:32 General appearance: Present: no acute distress, well-nourished, obese (morbidly obese) - EENT Eyes: Present: PERRL, EOM intact - Neck Neck: Present: supple, normal ROM - Respiratory Respiratory effort: normal Respiratory: bilateral: diminished, negative: rales, rhonchi, wheezing - Cardiovascular Rhythm: regular Heart Sounds: Present: S1 & S2 - Extremities Extremities: no ischemia, No edema - Abdominal General gastrointestinal: Present: soft, non-tender, non-distended, normal bowel sounds - Integumentary Integumentary: Present: clear, warm - Musculoskeletal Musculoskeletal: strength equal bilaterally - Psychiatric Psychiatric: appropriate mood/affect, cooperative - Neurologic Neurologic: moves all extremities Plan Activity: no restrictions Diet: diabetic Additional Instructions: Advised seat private vibration engineer OR any other vibration engineer. in 1 week. 2 days work excuse on 09/07 and 09/08/18. Advice weight reduction Follow up with: PRIMARY CARE, [Referring] - 3-5 Days Forms: Work/School Excuse Out Patient, Work/School Release Form Prescriptions: AtorvaSTATin [Lipitor] 20 mg PO QHS #30 tablet Insulin NPH/Regular [NovoLIN 70/30] 48 unit SUB-Q BIDDIAB 30 Days units Lispro Insulin [Humalog] See Protocol SUB-Q ACHS 30 Days units Other Discharge Orders: Glucometer (Amb) Location: None Selected Glucometer supplies[Amb] Location: None Selected
[2018-09-06] MEDS ORDERED: ZESTRIL PO SCH (15:00)
== END 2018-09-06 16:00 | disposition home or self-care (01) | DRG 638 ==
LOC: ED 08:54 → CC1 10:53 → 3A 09-02 15:38
PROVIDERS: ADMIT Internal Medicine; ATTEND Internal Medicine
DX: E11.10 Type 2 diabetes mellitus with ketoacidosis without coma (principal); E87.1 Hypo-osmolality and hyponatremia; E44.0 Moderate protein-calorie malnutrition; Z68.44 Body mass index [BMI] 60.0-69.9, adult; E66.01 Morbid (severe) obesity due to excess calories; E87.5 Hyperkalemia; E83.39 Other disorders of phosphorus metabolism; I10 Essential (primary) hypertension; Z71.3 Dietary counseling and surveillance; Z83.3 Family history of diabetes mellitus; Z82.49 Family history of ischemic heart disease and other diseases of the circulatory system
CPT/HCPCS: 36415; 80048; 80053; 80061; 80076; 81001; 82550; 82553; 82805; 82962; 83036; 83735; 83880; 84100; 84484; 85007; 85025; 85379; 93005; 93010; 96361; 96374; 96375; 99291; 99406; G0378; A9270-GY; J1650; J1815; J7030; J7040

== ENCOUNTER 2021-02-19 09:45 | Emergency (ER) | payer SELFPAY ==
[2021-02-19 11:29] VITALS: BP 152/87
--- NOTE | 2021-02-19 12:55 | Emergency Department Report ---
ED General Adult HPI - General Chief complaint: Abdominal Pain Stated complaint: HERNIA Time Seen by Provider: 02/19/21 12:50 Source: patient Mode of arrival: Ambulatory Limitations: No Limitations - History of Present Illness Initial comments: Patient is a 40-year-old male presents emergency room complaints of a possible hernia to the right groin that began a few months ago. 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 He states whenever he does do any lifting he feels a bulge and has pain. He denies any pain currently. He states he typically only feels it after he does lifting. he states he is having normal BMs. He denies any nausea, vomiting, diarrhea, hematochezia, melena, hematemesis, urinary retention, testicular pain. PMHx DM. No allergies to medicines. - Related Data Previous Rx's Medication Instructions Recorded Last Taken Type AtorvaSTATin [Lipitor] 20 mg PO QHS #30 tablet 09/06/18 Unknown Rx Insulin NPH/Regular [NovoLIN 70/30] 48 unit SUB-Q BIDDIAB 30 Days 09/06/18 Unknown Rx units Lispro Insulin [HumaLOG] See Protocol SUB-Q ACHS 30 Days 09/06/18 Unknown Rx units Allergies Allergy/AdvReac Type Severity Reaction Status Date / Time No Known Allergies Allergy Unverified 09/01/18 09:16 ED Review of Systems ROS: Stated complaint: HERNIA Other details as noted in HPI Comment: All other systems reviewed and negative ED Past Medical Hx - Past Medical History Previous Medical History?: Yes Hx Heart Attack/AMI: No Hx Congestive Heart Failure: No Hx Diabetes: Yes Hx Asthma: No Hx COPD: No - Social History Smoking Status: Never Smoker Substance Use Type: None - Medications Home Medications: Home Medications Medication Instructions Recorded Confirmed Last Taken Type AtorvaSTATin [Lipitor] 20 mg PO QHS #30 tablet 09/06/18 Unknown Rx Insulin NPH/Regular [NovoLIN 70/30] 48 unit SUB-Q BIDDIAB 30 Days 09/06/18 Unknown Rx units Lispro Insulin [HumaLOG] See Protocol SUB-Q ACHS 30 Days 09/06/18 Unknown Rx units ED Physical Exam - General Limitations: No Limitations General appearance: alert, in no apparent distress - Head Head exam: Present: atraumatic, normocephalic - Eye Eye exam: Present: normal appearance - ENT ENT exam: Present: mucous membranes moist - GI/Abdominal GI/Abdominal exam: Present: soft. Absent: distended, tenderness, guarding, rebound, rigid - exam: Present: other (associate data scientist: judy Cheng, there is a palpable right inguinal hernia which is able to be easily reduced through the scrotum into the canal, no ttp, no testicular ttp, normal testicular lie, normal cremasteric reflex) - Neurological Exam Neurological exam: Present: alert, oriented X3 - Psychiatric Psychiatric exam: Present: normal affect, normal mood - Skin Skin exam: Present: warm, dry, intact ED Course Vital Signs 02/19/21 11:28 Temperature 98.3 F Pulse Rate 69 Respiratory 18 Rate Blood Pressure 152/87 O2 Sat by Pulse 98 Oximetry ED Medical Decision Making - Medical Decision Making Patient is a 40-year-old male presents emergency room complaints of a possible hernia to the right groin that began a few months ago. 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 He states whenever he does do any lifting he feels a bulge and has pain. He denies any pain currently. He states he typically only feels it after he does lifting. he states he is having normal BMs. He denies any nausea, vomiting, diarrhea, hematochezia, melena, hematemesis, urinary retention, testicular pain. PMHx DM. No allergies to medicines. Vitals are stable. On exam:associate data scientist: judy Cheng, there is a palpable right inguinal hernia which is able to be easily reduced through the scrotum into the canal, no ttp, no testicular ttp, normal testicular lie, normal cremasteric reflex. Examination appears consistent with inguinal hernia without any signs of obstruction or strangulation. It is able to easily be reduced. He has no pain currently. Patient will be referred to outpatient general surgery. Discussed strict return precautions with patient. Advised patient Please follow-up with a general surgeon. Please follow-up with your primary care doctor. Avoid heavy lifting. Return to emergency room immediately for any new or worsening symptoms including but not limited to worsening pain, vomiting, unable to tolerate by mouth intake, if the bulge is not able to be pushed back in, unable to urinate, unable to have a bowel movement or pass gas, etc. Critical care attestation.: If time is entered above; I have spent that time in minutes in the direct care of this critically ill patient, excluding procedure time. ED Disposition Clinical Impression: Inguinal hernia Qualifiers: Obstruction and gangrene presence: without obstruction or gangrene Laterality: unilateral Recurrence: recurrent Qualified Code(s): K40.91 - Unilateral inguinal hernia, without obstruction or gangrene, recurrent Disposition: TO HOME OR SELFCARE Is pt being admited?: No Does the pt Need Aspirin: No Condition: Stable Instructions: Inguinal Hernia, Adult, [id number] Additional Instructions: Please follow-up with a general surgeon. Please follow-up with your primary care doctor. Avoid heavy lifting. Return to emergency room immediately for any new or worsening symptoms including but not limited to worsening pain, vomiting, unable to tolerate by mouth intake, if the bulge is not able to be pushed back in, unable to urinate, unable to have a bowel movement or pass gas, etc. Referrals: LV FIGUEROA MD [Staff Physician] - 3-5 Days ALBERTO HAMILTON DO [Staff Physician] - 3-5 Days your, primary care doctor [Other] - 3-5 Days Forms: Work/School Release Form(ED) Time of Disposition: 12:53 Print Language: AZERI
== END 2021-02-19 12:55 | disposition home or self-care (01) ==
LOC: ED 09:45
DX: K40.90 Unilateral inguinal hernia, without obstruction or gangrene, not specified as recurrent (principal); E11.9 Type 2 diabetes mellitus without complications
CPT/HCPCS: 99281